=== PATIENT | male | born 1955 | race Caucasian/White ===

== ENCOUNTER 2017-08-29 11:59 | Day surgery (SDC) | payer OTHER, MEDICARE, MEDICAID, SELFPAY ==
--- NOTE | 2017-08-16 12:33 | EKG12_ITS ---
Test Reason : PRE OP Blood Pressure : / mmHG Vent. Rate : 104 BPM Atrial Rate : 104 BPM P-R Int : 204 ms QRS Dur : 086 ms QT Int : 332 ms P-R-T Axes : 041 -05 064 degrees QTc Int : 436 ms Sinus tachycardia Otherwise normal ECG Confirmed by JACKELINE HATFEILD, GIGI ([id number]), society editor DINA LORENZANA ([id number]) on 08/20/2017 3:07:08 PM Referred By: MARGIE Confirmed By:GIGI VIVEROS MD
[2017-08-16 13:25] LABS: Hematocrit 46.6 % (40-54); Hemoglobin 15.5 g/dl (13.0-16.5); Mean Corp Hgb Conc 33.3 g/gl (32-36); Mean Corpuscular Hgb 30.8 pg (27.0-32.0); Mean Corpuscular Volume 92.6 fL (80-94); Mean Platelet Vol. 11.2 fl (6.2-12.0); Platelet Count 141 K/mm3 (150-450); RBC Distribution Width CV 12.2 % (11.6-14.6); RBC Distribution Width SD 41.5 fl (35.1-43.9); Red Blood Count 5.03 M/mm3 (4.6-6.2); Scan Indicated on CBC? Y/N NO; White Blood Count 6.8 K/mm3 (4.4-11.0)
[2017-08-16 13:54] LABS: AST(SGOT) 14 U/L (15-37); Alanine Aminotransfer ALT/SGPT 10 U/L (12-78); Albumin, Serum 3.6 g/dL (3.4-5.0); Alkaline Phosphatase 67 U/L (45-117); Anion Gap 6 (5-15); BUN 13 mg/dL (7-18); Calcium,Total 8.7 mg/dL (8.5-10.1); Chloride 107 mmol/L (98-107); Creatinine, Serum 0.68 mg/dL (0.70-1.30); EST Glomerular Filtration Rate 125 mL/min (>60); Est Glom Filt Rate - Afr Amer 151 mL/min (>60); Globulin 3.6 g/dL (2.2-4.2); Glucose 109 mg/dL (70-110); Potassium 4.3 mmol/L (3.5-5.1); Protein, Total 7.2 g/dL (6.4-8.2); Sodium Level 142 mmol/L (136-145)
[2017-08-16 14:36] LABS: Color, Urine Yellow (Yellow); Glucose, Dipstick Normal (Normal); Ketone-Dipstick 5 mg/dl (Negative); Leukocyte Esterase-Dipstick 500 /ul (Negative); Nitrite-Dipstick Negative (Negative); Occult Blood-Urine 25 /ul (Negative); Protein-Dipstick Negative (Negative); Urine Bilirubin Dipstick Negative (Negative); Urine Clarity Sl. Cloudy (Clear); Urine Urobilinogen Normal (Normal)
[2017-08-29 12:55] VITALS: BP 118/75; PULSE 88; RESP 16; TEMP 37.3; O2SAT 98; BMI 24.7
--- NOTE | 2017-08-29 13:15 | VDLE_ITS ---
Reason For Study: LEG PAIN AND SWELLING RIGHT LEFT GSV is dilated and non-compressible from SFJ CFV is compressible, spontaneous, phasic, to ankle competent, and demonstrates normal CFV and proximal FV are dilated and non- augmentation. compressible with intraluminal echoes and diminshed blood flow. Mid/Dist FV, POP V and T/P trunk are partially compressible with intraluminal echoes and diminshed blood flow. PTV is compressible PER V is compressible Thrombus filled varicosities noted Rt medial calf. Procedure Exam performed portable in patient room. A preliminary report was called and/or faxed to AC nurse. Interpretation Summary Acute deep vein thrombosis is noted in the right common femoral vein. Acute deep vein thrombosis is noted in the right femoral vein. Acute deep vein thrombosis is noted in the right popliteal vein. Acute deep vein thrombosis is noted in the right tibio-peroneal trunk. The right posterior tibial vein and peroneal vein are patent and compressible. Acute superficial thrombophlebitis is noted in the right great saphenous vein from the right sapheno-femoral junction to the ankle. Acute superficial thrombophlebitis is noted involving superficial varicosities in the right medial calf. Ordering Physician: Rodrigo White Referring Physician: Adelfo Burns M.D. Performed By: Claudette Gerardo RVT
== END 2017-08-29 14:08 | disposition short-term general hospital (02) ==
LOC: SDC 12:00 → AC 12:00 → MS3 13:57
PROVIDERS: Family Provider Family Medicine; PCP Family Medicine; Visit Provider Urology
DX: Z01.818 Encounter for other preprocedural examination (principal); I82.411 Acute embolism and thrombosis of right femoral vein; I82.431 Acute embolism and thrombosis of right popliteal vein; I82.441 Acute embolism and thrombosis of right tibial vein; I80.01 Phlebitis and thrombophlebitis of superficial vessels of right lower extremity; Z79.899 Other long term (current) drug therapy
CPT/HCPCS: 36415; 80053; 81002; 85027; 86850; 86900; 87086; 93971; J7120; J2405

== ENCOUNTER 2017-08-29 14:07 | Inpatient (IN) | payer OTHER, MEDICARE, MEDICAID, SELFPAY ==
[2017-08-29] VITALS (7 sets, daily range): BP systolic 105–162; BP diastolic 67–85; PULSE 75–91; RESP 16–18; TEMP 36.5–37.3; O2SAT 93–96; BMI 24.7
--- NOTE | 2017-08-29 14:20 | ED.RN ---
police obtained number for son. registration obtained for daughter. attempted to call with no answer at this time.
--- NOTE | 2017-08-29 15:07 | RAD_ITS ---
STUDY: X-RAY CHEST REASON FOR EXAM: Male, 61 years old. Cough. TECHNIQUE: Single AP portable view of the chest. COMPARISON: None. FINDINGS: EKG electrodes are seen. The lungs are clear and expanded. There is no demonstrated pleural abnormality. There is mild cardiac enlargement. Normal mediastinum and ethan. Normal visualized pulmonary arteries. There is atherosclerotic tortuosity of the aortic arch and descending thoracic aorta. Normal visualized thoracic spine. Normal visualized ribs, clavicles, and shoulders. There is no demonstrated abnormality of the visualized soft tissue structures of the upper abdomen. RAD/Chest 1 View (Portable) IMPRESSION: Mild cardiomegaly. The lungs are clear. Electronically Signed: Temo Raya MD at 15:46 EST Tel [phone], Service support ,
--- NOTE | 2017-08-29 15:07 | EKG12_ITS ---
Test Reason : Blood Pressure : / mmHG Vent. Rate : 093 BPM Atrial Rate : 093 BPM P-R Int : 160 ms QRS Dur : 088 ms QT Int : 364 ms P-R-T Axes : 050 022 066 degrees QTc Int : 452 ms Normal sinus rhythm Normal ECG Confirmed by GIGI VIVEROS MD ([id number]), script editor DINA LORENZANA ([id number]) on 09/04/2017 3:31:05 PM Referred By: KP Confirmed By:GIGI VIVEROS MD
[2017-08-29] MEDS: Carbidopa/Levodopa 25/250 Tablet PO (15:36)
[2017-08-29] MEDS: diazePAM 2 MG Tablet PO (15:36)
--- NOTE | 2017-08-29 15:38 | ED.DCSUM_ITS ---
- ER Visit Summary Date of Service: 08/29/17 Chief Complaint: DVT History of Present Illness: The patient is a 61 M DVT in his right leg diagnosed today. Patient has a history of an enlarged prostate and frequent UTIs. He came to the hospital today to have a prostate procedure by Dr. White. It was noted that he had right leg pain last night and then swelling today. He was sent for an ultrasound. This showed clots throughout his right leg. Please refer to the separate report. He never had DVTs before. He is not on blood thinners. He denies any chest pain, shortness of breath, or cough. He does have a history of Parkinson's disease and resides in a nursing facility. Physical Examination: Vital signs unremarkable. Afebrile. Alert. Appears comfortable. Heart regular. Lungs clear. Right lower extremity is diffusely swollen and tender to palpation. Pulses are intact. Sensation intact. Test Results: Ultrasound results reviewed. Will get chest x-ray, EKG, laboratory studies. Emergency Department Course and Treatment: He was treated with his Parkinson's medication while awaiting results. I spoke with the hospitalist. If labs are normal, he will be started on Lovenox and admitted for monitoring. Treatment Plan: As above Disposition: Admission Impression: 1. DVT right leg This note was generated with [employer] dictation software. It may contain incorrect words, spelling, and punctuation that were not noted in review of the chart prior to signing ED Disposition - Plan for ED Patient: Chief Complaint: Lower Extremity Injury Referrals: Adelfo Burns MD [Primary Care Provider] -
[2017-08-29] MEDS: Baclofen 10 MG Tablet PO ×3 (15:40→22:25)
[2017-08-29 15:44] LABS: Absolute Lymphocyte Count 1.41 X10^3/ul (0.83-4.51); Absolute Neutrophil Count 5.3 X10^3/uL (2.0-7.7); Basophil# 0.02 X10^3/uL; Basophil% 0.3 % (0-1); Eosinophil# 0.15 X10^3/uL; Hematocrit 44.8 % (40-54); Lymphocyte # 1.41 X10^3/ul (4.0); Lymphocyte % 18.9 % (19-41); Mean Corp Hgb Conc 33.5 g/gl (32-36); Mean Corpuscular Hgb 30.7 pg (27.0-32.0); Mean Corpuscular Volume 91.6 fL (80-94); Mean Platelet Vol. 10.6 fl (6.2-12.0); Monocyte# 0.58 X10^3/uL; Monocyte% 7.8 % (0-10); Neutrophil # 5.28 X10^3/uL (2.7-7.7); Neutrophil % 70.7 % (47-70); Platelet Count 184 K/mm3 (150-450); RBC Distribution Width CV 12.3 % (11.6-14.6); RBC Distribution Width SD 41.2 fl (35.1-43.9); Red Blood Count 4.89 M/mm3 (4.6-6.2); White Blood Count 7.5 K/mm3 (4.4-11.0)
[2017-08-29 15:45] LABS: POSITIVE COUNT NO; POSITIVE DIFFERENTIAL NO; POSITIVE MORPHOLOGY NO
[2017-08-29 15:55] LABS: Anion Gap 7 (5-15); BUN 17 mg/dL (7-18); BUN/Creat Ratio 26.9 RATIO (10-20); Calcium,Total 8.7 mg/dL (8.5-10.1); Chloride 107 mmol/L (98-107); Creatinine, Serum 0.63 mg/dL (0.70-1.30); EST Glomerular Filtration Rate 136 mL/min (>60); Est Glom Filt Rate - Afr Amer 165 mL/min (>60); Estimated Creatinine Clearance 93.89 ml/min; Glucose 82 mg/dL (70-110); Potassium 3.8 mmol/L (3.5-5.1); Sodium Level 142 mmol/L (136-145)
[2017-08-29 16:00] LABS: International Normalized Ratio 1.2; Partial Thromboplast Time 32.8 Seconds (24.1-36.2); Prothrombin Time (Protime)PT. 14.9 SECONDS (11.7-14.9)
--- NOTE | 2017-08-29 16:35 | PCM.HP.STD ---
<Scott Zaman - Last Filed: 08/29/17 16:35> Problem List (1) DVT (deep venous thrombosis) Status: Acute (2) Urinary retention due to benign prostatic hyperplasia Status: Chronic (3) Parkinson disease Status: Chronic (4) Dysphagia Status: Chronic History of Present Illness Date of Admission: 08/29/17 Chief Complaint: swelling of right leg The patient is a 61 year old M who presented to the emergency room from outpatient surgery where he was found to have acute right lower extremity DVT. Patient and his first noticed swelling of his leg starting yesterday. He notices very edematous, warm, and erythematous. Today it was much worse. The patient resides in nursing home home as he has had Parkinson's for about 13 years has very debilitated. He has very minimal movement. He is essentially wheelchair-bound. He reported to the hospital to have a cystoscopy as he has had urinary retention secondary to benign prostatic hypertrophy with frequent UTIs - he was on an abx leading up to this but they do not remember which. They found his right leg severely swollen and decided to do an ultrasound which did reveal underlying DVTs. He denies any history of blood clots. He denies any inciting trauma, there been no falls recently and no accidental injuries to that area. He denies any respiratory symptoms, he has no dyspnea, no cough, no chest pain, no pain with deep inspiration. The patient is a very difficult time speaking and most of the interview was obtained via his who is present. [] Past Medical History Past Medical History (Chronic Problems): Chronic Problems Chronic constipation (Chronic) Parkinson disease (Chronic) Urinary retention due to benign prostatic hyperplasia (Chronic) Dysphagia (Chronic) Allergies Penicillins Allergy (Verified 12/29/15 15:47) Hives quetiapine fumarate [From Seroquel] Adverse Reaction (Verified 02/16/15 15:17) Other PERSONALITY CHANGES Home Medications: Ambulatory Orders Medication Instructions Recorded Baclofen 10 mg PO Q4H 04/25/17 Carbidopa/Levodopa 50/200 [Sinemet 1 tablet PO Q4H PRN 04/25/17 CR] Diazepam 2 mg PO 5X/DAY 04/25/17 Gavilax 17 gm PO DAILY 04/25/17 Ropinirole HCl [Requip] 1 mg PO 5X/DAY 04/25/17 Tamsulosin HCl [Flomax] 0.8 mg PO DAILY 04/25/17 Oxycodone HCl/Acetaminophen 1 - 2 tablet PO Q4H PRN PRN #30 04/26/17 [Percocet 5/325] tablet Carbidopa/Levodopa 25/100 [Sinemet] 1 tablet PO 0000 08/14/17 Cranberry Fruit Extract [Cranberry 500 mg PO DAILY 08/14/17 Concentrate] Cephalexin 500 mg PO DAILY 08/29/17 Cephalexin [Keflex] 500 mg PO Q6 08/29/17 Finasteride [Proscar] 5 mg PO DAILY 08/29/17 Surgical History: herniorrhaphy - right, tonsillectomy Lives: [facility] Smoking Status: Never smoker Tobacco Use: Non-smoker Alcohol: None Drugs: None - *Family History Maternal History Items: Cancer - breast Review of Systems Constitutional: Reports: Weakness. Denies: Chills, Fever, Weight Change Eyes: Denies: Double vision, Vision Change HEENT: Reports: Difficulty Swallowing. Denies: Difficulty Hearing, Dysphasia, Head Aches, Sinus Congestion, Sinus Drainage Cardiovascular: Denies: Chest Pain, Palpitations Respiratory: Denies: Cough, Hemoptysis, Pleuritic Pain, Shortness of Breath, Shortness of breath at rest, Shortness of breath upon exertion, Sputum production, Wheezing Gastrointestinal: Denies: Abdominal Pain, Diarrhea, Nausea, Vomiting Genitourinary: Reports: Retention. Denies: Dysuria Musculoskeletal: Denies: Joint Pain, Joint Tenderness Skin: Denies: Rash, Wounds Neurological: Denies: Numbness, Tingling, Focal weakness Psychiatric: Denies: Anxiety, Depression, Homicidal Ideations, Suicidal Ideations Hematologic/ Lymphatic: Denies: Easy Bruising, Easy Bleeding VTE Information - Inpt Only VTE Present on Admission: Yes VTE Mechan Device Prophylaxis: None VTE Pharm Prophylaxis ordered?: Yes VTE Suspected: Suspected DVT Patient Problems: Active and Suspected Problems DVT (deep venous thrombosis) (Acute) - Physical Exam General: Alert, Oriented x3, Cooperative HEENT: Atraumatic, PERRLA, EOMI, Normocephalic Neck: Supple, No JVD, Negative Carotid Bruits Lungs: Clear to auscultation, Normal air movement Cardiovascular: Regular rate, No murmurs Abdomen: Bowel Sounds Present, Soft, Non Tender Extremities: Capillary Refill Less than 3 Seconds, Edema, - - Right lower extremity is swollen in the proximal and distal aspects. There is an area of erythema. It is very warm to the touch. Skin: No rashes, No breakdown Musculoskeletal: No Tenderness to Palpation of Joints or Extremities Neurological: Cranial nerves II-XII grossly intact Psych/Mental Status: Normal Affect, Appropriate Vital Signs Temp Pulse Resp BP Pulse Ox 97.8 F 91 18 162/85 H 93 08/29/17 14:08 08/29/17 16:14 08/29/17 16:14 08/29/17 16:14 08/29/17 16:14 Assessment/Plan Active and Suspected Problems DVT (deep venous thrombosis) (Acute) 1. Acute right lower extremity DVT-patient will be placed on therapeutic Lovenox with plan to transition to oral anticoagulation in the morning. Currently no respiratory symptoms. The patient likely developed DVT as he is chronically immobile secondary to Parkinson's disease. 2. Debility and Parkinson's disease-PT OT. Patient will need to be transition back to nursing home where he came from. 3. Chronic urinary retention secondary to BPH-patient will need to follow-up with Dr. Barlow as an outpatient to have his cystoscopy that was canceled today. 4. Dysphagia -chronic - patient requires thickened liquid diets and smashed foods. We will do speech therapy consult and dietary consult. 5. HTN - bp elevated in ER. Trend and treat if indicated DC planning: Return to SNF when appropriate. This patient was seen by Scott Zaman PA-C under the supervision of Doctor Ti. <Reese Luke E - Last Filed: 08/29/17 17:07> Problem List (1) Parkinson disease Status: Chronic (2) DVT (deep venous thrombosis) Status: Acute (3) Urinary retention due to benign prostatic hyperplasia Status: Chronic (4) Dysphagia Status: Chronic History of Present Illness The patient is a 61 year old M [] Past Medical History Allergies Penicillins Allergy (Verified 12/29/15 15:47) Hives quetiapine fumarate [From Seroquel] Adverse Reaction (Verified 02/16/15 15:17) Other PERSONALITY CHANGES - Physical Exam Vital Signs Temp Pulse Resp BP Pulse Ox 97.8 F 91 18 162/85 H 93 08/29/17 14:08 08/29/17 16:14 08/29/17 16:14 08/29/17 16:14 08/29/17 16:14 Assessment/Plan Hospitalist note: I am seeing this patient in conjunction with Scott Zaman. I independently seen and examined the patient. History and physical, laboratory data and imaging studies reviewed. I agree with above treatment and discharge plan. Patient came to the hospital today as outpatient for elective cystoscopy, found to have right leg swelling and he complains of pain. Venous Doppler of the right lower extremity done and reviewed extensive acute DVTs of multiple veins of the right lower extremity. At this time, patient complained of right calf pain. No chest pain or shortness of breath. Denied abdominal pain, nausea or vomiting. Patient is at the nursing home facility, nonambulatory most of his time because of Parkinson's disease and debility. This time, vital signs are stable. - Physical Exam General: Alert, Cooperative, No apparent distress. HEENT: Atraumatic, PERRLA, EOMI. Neck: Supple, No JVD, Negative Carotid Bruits, Trachea Midline, Thyroid Normal. Lungs: Diminished breath sounds bilateral, No rhonchi, No wheeze, No rales. Cardiovascular: Regular rate, Regular Rhythm, Normal S1, Normal S2, PMI Normal. Abdomen: Bowel Sounds Present, Soft, Non Tender, Non-Distended, No Hepato-splenomegaly. Extremities: No clubbing, No cyanosis, No edema Skin: No rashes, No breakdown Neurological: Cranial nerves are intact, global weakness. Vital Signs are stable. Assessment and plan: #1 acute extensive DVTs of the right lower extremity: This is considered unprovoked DVT because of sedentary life. No recent history of surgery, cancer or other congenital clotting disorders. Respiratory status is stable, other vital signs are stable. Plan to start him on Lovenox, eventually he would be on either Eliquis or Xarelto. #2 other chronic medical problems: Parkinson's disease, benign prostatic hypertrophy, debility and functional decline: Continue current treatment as above. This note was generated with [employer] dictation software. It may contain incorrect words, spelling, and punctuation that were not noted in checking the note before signing. Code Visit Inpatient E&M: 31624 Init Hosp L3
[2017-08-29] MEDS: Enoxaparin 60 MG/0.6 ML Syringe SC (17:03)
[2017-08-29] MEDS: Pramipexole Di-HCl 0.5 MG Tablet PO ×3 (17:03→22:25)
[2017-08-29] MEDS: 0.9% Normal Saline 1,000 ML 75 ML IV (18:36)
[2017-08-29] MEDS: diazePAM 5 MG Tablet 2.5 MG PO ×2 (18:36→22:26)
[2017-08-29] MEDS: Tamsulosin HCl 0.4 MG Capsule 0.8 MG PO (18:40)
[2017-08-29] MEDS: CARBIDOPA/LEVODOPA CR 50/200 Tablet PO ×2 (18:40→22:25)
[2017-08-29] MEDS: Senna/Docusate Sodium 1 Tablet 2 TABLET PO (22:25)
[2017-08-30] VITALS (8 sets, daily range): BP systolic 122–159; BP diastolic 66–90; PULSE 67–88; RESP 16–18; TEMP 36.7–37.1; O2SAT 93–98
[2017-08-30] MEDS: CARBIDOPA/LEVODOPA CR 50/200 Tablet PO ×6 (00:57→15:14)
[2017-08-30] MEDS: Carbidopa/Levodopa 25/100 Tablet PO (00:57)
[2017-08-30] MEDS: Baclofen 10 MG Tablet PO ×4 (00:57→14:07)
[2017-08-30] MEDS: diazePAM 5 MG Tablet 2.5 MG PO ×3 (05:47→14:12)
[2017-08-30] MEDS: Enoxaparin 60 MG/0.6 ML Syringe SC (05:48)
[2017-08-30] MEDS: Pramipexole Di-HCl 0.5 MG Tablet PO ×3 (05:48→14:07)
[2017-08-30] MEDS: Pantoprazole Sodium 20 MG Tablet PO (08:43)
[2017-08-30] MEDS: Senna/Docusate Sodium 1 Tablet 2 TABLET PO (10:03)
--- NOTE | 2017-08-30 12:48 | PCM.TXEXTCAR ---
- Diet 08/29/17 16:14 Diet: Regular Diet Food consistency:: Mechanical Soft/Ground Liquid Consistency:: [place] Thick Diet Comments: nectar thick liquids - Therapies Weight Bearing: return to previous activity level - Problem/Diagnosis (1) Parkinson disease Status: Chronic Current Visit: No (2) DVT (deep venous thrombosis) Status: Acute Comment: right leg Current Visit: Yes (3) Urinary retention due to benign prostatic hyperplasia Status: Chronic Current Visit: Yes (4) Dysphagia Status: Chronic Current Visit: Yes - Allergies/Procedures Done in Hospital Allergies/Adverse Reactions: Allergies Penicillins Allergy (Verified 12/29/15 15:47) Hives quetiapine fumarate [From Seroquel] Adverse Reaction (Verified 02/16/15 15:17) Other PERSONALITY CHANGES Procedures: None - Type of Care/Length of Stay Estimated LOS: More Than 30 Days Type of Care Needed: Intermediate Rehab Potential: Fair Prognosis: Fair - Additional Orders/Day of Discharge Additional Orders: straight cath twice daily. appointment with Dr. White in 3-4 weeks H&P will serve as current which was dated: 08/29/17 Day of Discharge: 08/30/17 - Follow Up Care Primary Care Physician: Adelfo Burns MD [Primary Care Provider] -
--- NOTE | 2017-08-30 12:59 | TREXTCAR_ITS ---
- Diet 08/29/17 16:14 Diet: Regular Diet Food consistency:: Mechanical Soft/Ground Liquid Consistency:: [place] Thick Diet Comments: nectar thick liquids - Therapies Weight Bearing: return to previous activity level - Problem/Diagnosis (1) Parkinson disease Status: Chronic Current Visit: No (2) DVT (deep venous thrombosis) Status: Acute Comment: right leg Current Visit: Yes (3) Urinary retention due to benign prostatic hyperplasia Status: Chronic Current Visit: Yes (4) Dysphagia Status: Chronic Current Visit: Yes - Allergies/Procedures Done in Hospital Allergies/Adverse Reactions: Allergies Penicillins Allergy (Verified 12/29/15 15:47) Hives quetiapine fumarate [From Seroquel] Adverse Reaction (Verified 02/16/15 15:17) Other PERSONALITY CHANGES Procedures: None - Type of Care/Length of Stay Estimated LOS: More Than 30 Days Type of Care Needed: Intermediate Rehab Potential: Fair Prognosis: Fair - Additional Orders/Day of Discharge Additional Orders: straight cath twice daily. appointment with Dr. White in 3- 4 weeks H&P will serve as current which was dated: 08/29/17 Day of Discharge: 08/30/17 - Follow Up Care Primary Care Physician: Adelfo Burns MD [Primary Care Provider] -
--- NOTE | 2017-08-30 14:06 | CASEMGMT ---
Social Work Transfer summary, medlist and scripts faxed to SNF. Copies on chart and originals in SNF packet. Transportation setup through [facility] via [facility] at 16:30. Notified SNF and RN. Plan: [facility] LUNA ValenciaW
--- NOTE | 2017-08-30 14:25 | CHAPLAIN ---
Type of Pastoral Visit _x__ Initial Visit ___ Follow-up Visit ___ On-call Visit ___ General Patient Visit ___ Spiritual Assessment ___ Family Conference ___ Bereavement ___ Rapid Response ___ Code Blue ___ Other (describe below) Pastoral Care Referral From _x__ Patient ___ Family ___ Nurse ___ Physician ___ Second Grade Teacher ___ Supervisor Dyer ___ Other (describe below) Sacrament/Intervention _x__ Active listening ___ Anointing ___ Samaritan ___ Bereavement ___ Communion _x__ Va exploration ___ ___ Life review _x__ Prayer ___ Reconciliation ___ Sacrament of Sick _x__ Supportive presence ___ Wedding ___ Other (describe below) Pastoral Comments
--- NOTE | 2017-08-31 10:21 | PCM.DC.SUM ---
Discharge Date and Diagnosis Date of Admission: 08/29/17 Date of Discharge: 08/30/17 - Primary Discharge Diagnosis #1 deep venous thrombosis right leg #2 Parkinson's disease #3 benign prostatic hypertrophy - Secondary Discharge Diagnosis Chronic Problems Chronic constipation (Chronic) Parkinson disease (Chronic) Urinary retention due to benign prostatic hyperplasia (Chronic) Dysphagia (Chronic) Hospital Course and Treatment Operations: None Procedures: None Summary of Care Provided: The patient is a 61 year old M was admitted to [facility] after going to the emergency room due to the finding of a DVT in his right leg. Patient was scheduled for outpatient prostate surgery, it was noted that he had right leg pain and swelling, he was sent for a venous ultrasound which showed clots throughout the right leg. Patient was sent to the emergency room for evaluation, he was started on Lovenox, and admitted to the hospitalist service for further treatment. The following day, patient was seen and examined, he had no shortness of breath and was on no oxygen. It was felt that the patient could return to an extended care facility at which he was a resident on Xarelto. On 08/30/17, patient was seen and examined felt to be in stable condition for discharged back to [facility] facility Home Medications: Medications to take at Discharge Baclofen 10 mg PO Q4H 04/25/17 Carbidopa/Levodopa 50/200 [Sinemet CR 50/200] 1 tablet PO Q4H PRN 04/25/17 Gavilax 17 gm PO DAILY 04/25/17 Ropinirole HCl [Requip] 1 mg PO 5X/DAY 04/25/17 Tamsulosin HCl [Flomax] 0.8 mg PO DAILY 04/25/17 Carbidopa/Levodopa 25/100 [Sinemet 25/100] 1 tablet PO 0000 08/14/17 Cranberry Fruit Extract [Cranberry Concentrate] 500 mg PO DAILY 08/14/17 Cephalexin 500 mg PO DAILY 08/29/17 Finasteride [Proscar] 5 mg PO DAILY 08/29/17 Diazepam 2 mg PO 4X/DAY #20 tab 08/30/17 Oxycodone [Oxyir] 5 mg PO Q4H PRN PRN #30 tab 08/30/17 Rivaroxaban [Xarelto] 15 mg PO BID #1 tablet 08/30/17 Following Prescrptions Were Given to Patient: Oxycodone [Oxyir] 5 mg PO Q4H PRN PRN #30 tab PRN Reason: Severe Pain (6-06/19) Rivaroxaban [Xarelto] 15 mg PO BID #1 tablet Diazepam 2 mg PO 4X/DAY #20 tab Primary Care Physician: Adelfo Burns MD [Primary Care Provider] - Disposition: [facility] facility Minutes spent on discharge:: 32 Patient Condition:: Stable Meaningful Use Info Meaningful Use Diagnoses (Choose all that apply): VTE - VTE Anticoag overlap given w/in hospital stay or rx'd at dc?: Yes Pt receive overlap for 5 days?: No Reason overlap not ordered, prescribed, or given for 5 days: Treatment Not Indicated - on Xarelto Code Visit Inpatient E&M: 14413 Disch Hosp
--- NOTE | 2017-08-31 10:27 | DS.PCM_ITS ---
Discharge Date and Diagnosis Date of Admission: 08/29/17 Date of Discharge: 08/30/17 - Primary Discharge Diagnosis #1 deep venous thrombosis right leg #2 Parkinson's disease #3 benign prostatic hypertrophy - Secondary Discharge Diagnosis Chronic Problems Chronic constipation (Chronic) Parkinson disease (Chronic) Urinary retention due to benign prostatic hyperplasia (Chronic) Dysphagia (Chronic) Hospital Course and Treatment Operations: None Procedures: None Summary of Care Provided: The patient is a 61 year old M was admitted to [facility] after going to the emergency room due to the finding of a DVT in his right leg. Patient was scheduled for outpatient prostate surgery, it was noted that he had right leg pain and swelling, he was sent for a venous ultrasound which showed clots throughout the right leg. Patient was sent to the emergency room for evaluation, he was started on Lovenox, and admitted to the hospitalist service for further treatment. The following day, patient was seen and examined, he had no shortness of breath and was on no oxygen. It was felt that the patient could return to an extended care facility at which he was a resident on Xarelto. On 08/30/17, patient was seen and examined felt to be in stable condition for [facility] Home Medications: Medications to take at Discharge Baclofen 10 mg PO Q4H 04/25/17 Carbidopa/Levodopa 50/200 [Sinemet CR 50/200] 1 tablet PO Q4H PRN 04/25/17 Gavilax 17 gm PO DAILY 04/25/17 Ropinirole HCl [Requip] 1 mg PO 5X/DAY 04/25/17 Tamsulosin HCl [Flomax] 0.8 mg PO DAILY 04/25/17 Carbidopa/Levodopa 25/100 [Sinemet 25/100] 1 tablet PO 0000 08/14/17 Cranberry Fruit Extract [Cranberry Concentrate] 500 mg PO DAILY 08/14/17 Cephalexin 500 mg PO DAILY 08/29/17 Finasteride [Proscar] 5 mg PO DAILY 08/29/17 Diazepam 2 mg PO 4X/DAY #20 tab 08/30/17 Oxycodone [Oxyir] 5 mg PO Q4H PRN PRN #30 tab 08/30/17 Rivaroxaban [Xarelto] 15 mg PO BID #1 tablet 08/30/17 Following Prescrptions Were Given to Patient: Oxycodone [Oxyir] 5 mg PO Q4H PRN PRN #30 tab PRN Reason: Severe Pain (6-06/19) Rivaroxaban [Xarelto] 15 mg PO BID #1 tablet Diazepam 2 mg PO 4X/DAY #20 tab Primary Care Physician: Adelfo Burns MD [Primary Care Provider] - Disposition: Nursing Home facility Minutes spent on discharge:: 32 Patient Condition:: Stable Meaningful Use Info Meaningful Use Diagnoses (Choose all that apply): VTE - VTE Anticoag overlap given w/in hospital stay or rx'd at dc?: Yes Pt receive overlap for 5 days?: No Reason overlap not ordered, prescribed, or given for 5 days: Treatment Not Indicated - on Xarelto Code Visit Inpatient E&M: 20896 Disch Hosp
== END 2017-08-30 16:35 | disposition intermediate care facility (04) | DRG 301 ==
LOC: ED 16:05 → MS2 17:05
PROVIDERS: Admitting Provider Hospitalist; Emergency Provider Emergency Medicine; Family Provider Family Medicine; PCP Family Medicine; Visit Provider Internal Medicine
DX: I82.411 Acute embolism and thrombosis of right femoral vein (principal); G20 Parkinson's disease; I82.431 Acute embolism and thrombosis of right popliteal vein; I82.441 Acute embolism and thrombosis of right tibial vein; R13.10 Dysphagia, unspecified; N40.1 Benign prostatic hyperplasia with lower urinary tract symptoms; R33.8 Other retention of urine; K59.09 Other constipation
CPT/HCPCS: 71010; 80048; 85025; 85610; 85730; 92610; 93005; 93971; 97802; 99285; J7030; J7120; A4216; G8996; G8997

== ENCOUNTER → 2017-09-17 05:00 | Outpatient (REF) | payer MEDICARE, MEDICAID, SELFPAY ==
[2017-09-17 09:08] LABS: Hematocrit 42.6 % (40-54); Hemoglobin 13.8 g/dl (13.0-16.5); Mean Corp Hgb Conc 32.4 g/gl (32-36); Mean Corpuscular Volume 92.6 fL (80-94); Mean Platelet Vol. 12.1 fl (6.2-12.0); Platelet Count 135 K/mm3 (150-450); RBC Distribution Width CV 12.4 % (11.6-14.6); RBC Distribution Width SD 41.9 fl (35.1-43.9); White Blood Count 5.9 K/mm3 (4.4-11.0)
[2017-09-17 09:10] LABS: Scan Indicated on CBC? Y/N NO
[2017-09-17 09:25] LABS: ALB/GLOB Ratio 0.9 RATIO (0.9-2.4); AST(SGOT) 10 U/L (15-37); Alanine Aminotransfer ALT/SGPT 8 U/L (12-78); Alkaline Phosphatase 56 U/L (45-117); Anion Gap 6 (5-15); BUN 15 mg/dL (7-18); BUN/Creat Ratio 22.7 RATIO (10-20); Calcium,Total 8.6 mg/dL (8.5-10.1); Chloride 109 mmol/L (98-107); Creatinine, Serum 0.66 mg/dL (0.70-1.30); EST Glomerular Filtration Rate 129 mL/min (>60); Est Glom Filt Rate - Afr Amer 157 mL/min (>60); Globulin 3.2 g/dL (2.2-4.2); Glucose 81 mg/dL (70-110); Potassium 3.6 mmol/L (3.5-5.1); Protein, Total 6.2 g/dL (6.4-8.2); Sodium Level 143 mmol/L (136-145)
== END ==
LOC: OLS.WCC 05:00
PROVIDERS: Visit Provider Family Medicine
DX: I10 Essential (primary) hypertension (principal); Z79.899 Other long term (current) drug therapy
CPT/HCPCS: 36415; 80053; 85027

== ENCOUNTER → 2017-10-17 14:00 | Outpatient (REF) | payer MEDICARE, SELFPAY ==
[2017-10-18 08:53] LABS: Color, Urine Yellow (Yellow); Glucose, Dipstick Normal (Normal); Ketone-Dipstick Negative (Negative); Leukocyte Esterase-Dipstick 500 /ul (Negative); Nitrite-Dipstick Positive (Negative); Occult Blood-Urine 50 /ul (Negative); Protein-Dipstick 100 mg/dl (Negative); Specific Gravity, Urine 1.015 (1.002-1.030); Urine Bilirubin Dipstick Negative (Negative); Urine Clarity Sl. Cloudy (Clear); Urine Urobilinogen Normal (Normal)
== END ==
LOC: OLS.WCC 14:00
PROVIDERS: Visit Provider Family Medicine
DX: N39.0 Urinary tract infection, site not specified (principal)
CPT/HCPCS: 81002; 87077; 87086; 87088; 87186

== ENCOUNTER → 2017-11-10 00:15 | Outpatient (REF) | payer MEDICARE, SELFPAY | LOC: OLS.WCC 00:15 | PROVIDERS: Visit Provider Family Medicine | DX: N39.0 Urinary tract infection, site not specified (principal) | CPT/HCPCS: 87077; 87086; 87088; 87186 ==

== ENCOUNTER → 2018-01-03 20:00 | Outpatient (REF) | payer MEDICARE, SELFPAY ==
[2018-01-04 08:38] LABS: Color, Urine Yellow (Yellow); Glucose, Dipstick 50 mg/dl (Normal); Ketone-Dipstick 5 mg/dl (Negative); Leukocyte Esterase-Dipstick 500 /ul (Negative); Nitrite-Dipstick Positive (Negative); Occult Blood-Urine 250 /ul (Negative); Protein-Dipstick 100 mg/dl (Negative); Urine Bilirubin Dipstick Negative (Negative); Urine Clarity Cloudy (Clear); Urine Urobilinogen Normal (Normal)
== END ==
LOC: OLS.WCC 20:00
PROVIDERS: Visit Provider Family Medicine
DX: N39.0 Urinary tract infection, site not specified (principal)
CPT/HCPCS: 81002; 87077; 87086; 87088; 87186

== ENCOUNTER → 2018-03-26 05:00 | Outpatient (REF) | payer MEDICARE, SELFPAY ==
[2018-03-26 07:54] LABS: Hematocrit 41.7 % (40-54); Hemoglobin 13.8 g/dl (13.0-16.5); Mean Corp Hgb Conc 33.1 g/gl (32-36); Mean Corpuscular Hgb 30.2 pg (27.0-32.0); Mean Corpuscular Volume 91.2 fL (80-94); Mean Platelet Vol. 11.6 fl (6.2-12.0); Platelet Count 150 K/mm3 (150-450); RBC Distribution Width CV 12.5 % (11.6-14.6); RBC Distribution Width SD 41.9 fl (35.1-43.9); Red Blood Count 4.57 M/mm3 (4.6-6.2); White Blood Count 6.9 K/mm3 (4.4-11.0)
[2018-03-26 07:57] LABS: Scan Indicated on CBC? Y/N NO
[2018-03-26 08:10] LABS: AST(SGOT) 18 U/L (15-37); Alanine Aminotransfer ALT/SGPT 9 U/L (16-61); Albumin, Serum 3.2 g/dL (3.2-5.0); Alkaline Phosphatase 47 U/L (45-117); Anion Gap 6 (5-15); BUN 20 mg/dL (7-18); BUN/Creat Ratio 26.1 RATIO (10-20); Calcium,Total 8.4 mg/dL (8.5-10.1); Chloride 112 mmol/L (98-107); Creatinine, Serum 0.76 mg/dL (0.70-1.30); EST Glomerular Filtration Rate 109 mL/min (>60); Est Glom Filt Rate - Afr Amer 132 mL/min (>60); Globulin 3.3 g/dL (2.2-4.2); Glucose 76 mg/dL (74-106); Potassium 3.8 mmol/L (3.5-5.1); Protein, Total 6.5 g/dL (6.4-8.2); Sodium Level 145 mmol/L (136-145)
== END ==
LOC: OLS.WCC 05:00
PROVIDERS: Visit Provider Family Medicine
DX: G20 Parkinson's disease (principal)
CPT/HCPCS: 36415; 80053; 85027

== ENCOUNTER → 2018-04-01 00:15 | Outpatient (REF) | payer MEDICARE, MEDICAID, SELFPAY ==
[2018-04-01 11:24] LABS: Color, Urine Amber (Yellow); Glucose, Dipstick Normal (Normal); Ketone-Dipstick Negative (Negative); Leukocyte Esterase-Dipstick 500 /ul (Negative); Nitrite-Dipstick Positive (Negative); Occult Blood-Urine 250 /ul (Negative); Protein-Dipstick 500 mg/dl (Negative); Specific Gravity, Urine 1.015 (1.002-1.030); Urine Bilirubin Dipstick Negative (Negative); Urine Clarity Cloudy (Clear); Urine Urobilinogen Normal (Normal)
== END ==
LOC: OLS.WCC 00:15
PROVIDERS: Visit Provider Family Medicine
DX: N39.0 Urinary tract infection, site not specified (principal)
CPT/HCPCS: 81002; 87077; 87086; 87088; 87186

== ENCOUNTER → 2018-04-10 04:00 | Outpatient (REF) | payer OTHER, MEDICAID, SELFPAY | LOC: OLS.WCC 04:00 | PROVIDERS: Visit Provider Family Medicine | DX: N39.0 Urinary tract infection, site not specified (principal) | CPT/HCPCS: 87086 ==

== ENCOUNTER → 2018-07-08 20:45 | Outpatient (REF) | payer MEDICARE, MEDICAID, SELFPAY | LOC: OLS.WCC 20:45 | PROVIDERS: Visit Provider Family Medicine | DX: N39.0 Urinary tract infection, site not specified (principal) | CPT/HCPCS: 87077; 87086; 87186 ==

== ENCOUNTER → 2018-08-24 04:15 | Outpatient (REF) | payer MEDICARE, SELFPAY ==
[2018-08-24 12:45] LABS: Color, Urine Yellow (Yellow); Glucose, Dipstick Normal (Normal); Ketone-Dipstick 5 mg/dl (Negative); Leukocyte Esterase-Dipstick 500 /ul (Negative); Nitrite-Dipstick Positive (Negative); Occult Blood-Urine 150 /ul (Negative); Protein-Dipstick 100 mg/dl (Negative); Specific Gravity, Urine 1.015 (1.002-1.030); Urine Bilirubin Dipstick Negative (Negative); Urine Clarity Cloudy (Clear); Urine Urobilinogen Normal (Normal)
--- OUTSIDE RECORDS SUMMARY | 2018-11-27 10:11 | XMS RPT_ITS ---
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 sinus. CT/Brain/Head without Contrast IMPRESSION: Mild chronic sinusitis. No intracranial findings. Electronically Signed: Latrice Cespedes MD at 18:29 EST Tel , Service support , CC: Scar Irwin MD; Shena Lorenzana MD Private Investigator Surveillance: Signed URINALYSIS, ROUTINE Collected: 08/24/2018 Status: F Source: [place] (DIPSTICK) 4:15 AM [facility] REPOSITORY Order Comment: How was Urine Obtained? CLEAN CATCH TYPE CODE TESTS RESULT OUT OF RANGE REFERENCE UNITS LAB L400.3000 Yellow COLOR Normal Yellow LAB L400.3050 Clear Normal CLARITY Cloudy LAB L400.3200 Normal mg/dl Normal GLUCOSE, UR Normal LAB L400.3300 Negative mg/dL Normal BILIRUBIN URINE Negative LAB L400.3400 Negative mg/dl High 5 KETONE UR LAB L400.3465 1.002-1.030 Normal SP.GR. DIPSTX 1.015 LAB L400.3550 5.0 - 8.0 pH UR Normal 8.0 LAB L400.3600 Negative mg/dl High PROT DIPSTX 100 LAB L400.3700 Normal mg/dl Normal UROBILI Normal LAB L400.3750 Negative High NITRITE UR Positive LAB L400.3780 Negative /ul High OCCULT BLOOD-UR 150 LAB L400.3800 Negative /ul High LEUK ESTERASE 500 Performed By: #### L400.2010 #### [place] [facility] [address] [place], [address] Observed: 08/24/2018 Status: F Source: [place] CULTURE, URINE 4:15 AM [facility] REPOSITORY NURSE AZIZA THOUGHT THIS WAS CLEAN CATCH Urine Culture ORGANISM 1: Proteus mirabilis [place] Count >100,000 Proteus mirabilis: REACTION Amoxacillin/Clavulanic Acid $ 8 S Ampicillin $ >=32 R Ampicillin/Sulbactam $ 16 I Cefazolin $ <=4 S Cefepime $ <=1 S Ceftriaxone $ <=1 S Ciprofloxacin $ >=4 R Ertapenim $$$ <=0.5 S Gentamicin $ <=1 S Levofloxacin $ >=8 R Nitrofurantoin $ 128 R Piperacillin/Tazobactam $$ <=4 S Tobramycin $ <=1 S Trimethoprim/Sulfametho $ >=320 R (NF) indicates non-formulary drug at [facility]. Approval by Infectious Disease Specialist required before non-formulary drugs may be ordered and/or dispensed. Performed By: #### M100.0650 #### [facility] [address] [place], [address] [facility] Observed: 08/23/2018 Status: COMPLETED Source: [place] 12:00 AM [facility] REPOSITORY Telephone (AKPRAD) SHENA TODD ([id number]) 1955 Date Time Provider Department 08/23/18 DAWSON MYRICK JR AKRAMOS During your visit today, we recorded the following information about you: Dawson Myrick Jr, MD 08/23/2018 1:04 PM Signed ucx + abx prescribed Please print and fax to Beatris Lackey [facility] 08/26/2018 9:34 AM Signed Called and notified Eliezer of below states he will place order for Keflex for patient. Beatris Lackey [facility] Allergies As of Date: 08/23/2018 Noted Allergy Reaction PENICILLINS 04/03/2007 4 - Hives SEROQUEL (QUETIAPINE FUMARATE) 06/28/2009 1 - Mental Status Change Comments: psychotic episode Date Reviewed: 08/20/2018 Reviewed by: Dawson Myrick Jr. - Fully Assessed Reason for Visit: Results [95] Order(s):cephALEXin (KEFLEX) 500 mg capsuleTake 1 capsule by mouth three times daily for 14 days.Disp: 42 capsuleRfl: 0 Prescriptions as of 08/23/2018 Sig: BACLOFEN 10 MG TABLET Take 10 mg by mouth three marquis* CARBIDOPA ER 50 MG-LEVODOPA 2* Take one(1) tablet six times * CEPHALEXIN 500 MG CAPSULE Take 1 capsule by mouth three* * CHOLECALCIFEROL (VITAMIN D3) * not taking DIAZEPAM 5 MG TABLET One half tablet 3 times a day* MAGNESIUM HYDROXIDE 400 MG/5 * Take 15 mL by mouth once samuel* MULTI-VITAMIN ORAL Take by mouth. Not Taking PANTOPRAZOLE 20 MG TABLET,DEL* TAKE 1 TABLET DAILY ON EMPTY * POLYETHYLENE GLYCOL 3350 17 G* Take 17 g by mouth twice samuel* POLYETHYLENE GLYCOL 3350 17 G* Take 17 g by mouth once daily* ROPINIROLE 0.5 MG TABLET Take 0.5 mg by mouth three ti* TAMSULOSIN 0.4 MG CAPSULE TAKE 1 CAPSULE BY MOUTH DAILY* Problem List As Of Date 08/23/2018 Noted Resolved LUMBAGO [M54.5] INVALID FOR* More... Unspecified essential hypertension [I10] INVALID FOR*04/13/2016 More... IMPAIRED FASTING GLUCOSE [R73.01] INVALID FOR* More... Paralysis agitans [G20] INVALID FOR* More... Routine general medical examination at a [facility]*INVALID FOR*04/13/2016 More... Obesity [E66.9] INVALID FOR*04/13/2016 More... Elevated PSA [R97.20] INVALID FOR* More... Joint Pain [M25.50] INVALID FOR* More... Adenomatous colon polyp [D12.6] INVALID FOR* Constipation [K59.00] INVALID FOR* Prescriptions ordered this encounter Disp Refills Start End CEPHALEXIN 500 MG CAPSULE 42 c* 0 08/23/2018 09/06/2018 Class: Print RX Route: ORAL Sig: Take 1 capsule by mouth three times daily for 14 days. Medications Discontinued During This Encounter cephALEXin (KEFLEX) 500 mg capsule 08/23/2018 Class: Historical Med Route: ORAL Sig: Take 500 mg by mouth four times daily. Disc: Reason for discontinue is not on file. Encounter Status:Closed by DAWSON MYRICK MD on 08/23/18 PROGRESS Observed: 08/20/2018 Status: COMPLETED Source: [place] 3:45 PM [facility] REPOSITORY HNO ID: [id number] Author: Dawson Myrick Jr. Service: (none) Author Type: Physician Type: Progress Notes Filed: 08/20/2018 3:47 PM Note Text: ESTABLISHED PATIENT OFFICE VISIT HPI Shena Todd is a 62 year old male who presents bph and recurrent uti. Has been on flomax for bph for years. Was doing ok until last year has developed recurrent uti. cx reviewed. Mdr proteus and morganella. Unsure of length of longest course of abx. No fever. + dysuria. ua discussed today. +. No imaging recently. Ho dvt. On xarelto. Last psa 5.71 in 04/2016. Had catheter per patient at that time. ? ? 02/26/18 - ucx mdr proteus and morganella. Saw dr. douglas. At that time dysuria had resolved. Decided on no treatment. Suggested CIC to keep bladder empty. Discussed CIC with patient. Willing to undergo daily. ? 04/10/18 - [place] indwelling mar catheter. cathing once daily currently. Does feel like has uti. 08/20/18 - still with recurrent uti. Was doing cic daily at [place]. However they have stopped bc of blood in the urine. Offered indwelling cath. Offered SPT. Wrote in note that ok for nurses to cath daily despite blood in urine. Refusing indwelling cath at the moment. LAB: Creatinine Date Value Ref Range Status 09/22/2013 0.63 (L) 0.70 - 1.40 mg/dL Final PSA (ng/mL) Date Value 04/13/2016 5.71 07/05/2009 9.72 No results found for: UGLUC, UBILI, UKET, SPGR, UHB, UPH, UPROT, UROBIL, NITRITES, UWBC, UCOLAP MEDICATIONS: baclofen (LIORESAL) 10 mg tablet Take 10 mg by mouth three times daily. carbidopa-levodopa CR (SINEMET CR) 50-200 mg per tablet Take one(1) tablet six times a day. cephALEXin (KEFLEX) 500 mg capsule Take 500 mg by mouth four times daily. CHOLECALCIFEROL (VITAMIN D3) 5,000 UNIT CAP not taking diazepam (VALIUM) 5 mg tablet One half tablet 3 times a day. Take one(1) tablet daily at bedtime for muscle cramps. magnesium hydroxide (MILK OF MAGNESIA) 400 mg/5 mL suspension Take 15 mL by mouth once daily as needed for Constipation. MULTI-VITAMIN ORAL Take by mouth. Not Taking pantoprazole DR (PROTONIX) 20 mg tablet TAKE 1 TABLET DAILY ON EMPTY STOMACH BEFORE BREAKFAST (30 MINUTES BEFORE MEAL) polyethylene glycol 3350 (MIRALAX) 17 gram/dose powder Take 17 g by mouth twice daily. polyethylene glycol 3350 (MIRALAX) 17 gram/dose powder Take 17 g by mouth once daily. 17 gm as needed in the evening. rOPINIRole (REQUIP) 0.5 mg tablet Take 0.5 mg by mouth three times daily. tamsulosin ER (FLOMAX) 0.4 mg cp24 TAKE 1 CAPSULE BY MOUTH DAILY AT BEDTIME. REVIEW OF SYSTEMS Review of Systems Constitutional: Negative. Respiratory: Negative. Cardiovascular: Negative. Gastrointestinal: Negative. Genitourinary: Negative. Skin: Negative. Neurological: Negative. Psychiatric/Behavioral: Negative. HISTORIES PAST MEDICAL HISTORY Diagnosis Date - Adenomatous colon polyp 11/26/2013 - Anomalous atrioventricular excitation - Kidney stones - Paralysis agitans (HCC) Parkinsons - PMH - PAST MEDICAL HISTORY OF pressure fractures in the back - Pure hypercholesterolemia - Right inguinal hernia 12/30/13 - Unspecified essential hypertension FAMILY HISTORY Problem Relation Age of Onset - Hypertension Mother - Hypertension Sister x2 - Diabetes Mother - Lipids Sister - Breast Cancer Mother diabetes - Headache Sister - other (Thryroid disease [Other]) Sister - Thyroid Mother - Diabetes Sister SOCIAL HISTORY Social History Substance Use Topics - Smoking status: Never Smoker - Smokeless tobacco: Never Used - Alcohol use No PHYSICAL EXAMINATION General appearance: Well appearing, alert, in no acute distress and well-hydrated, well nourished Skin: Skin color, texture, turgor normal, no suspicious rashes or lesions Respiratory:+ effort Cardiovascular: Not examined GI: Normal abdominal exam, Abdomen soft, non-tender. No masses, organomegaly Musculoskeletal: Negative Neuro: Negative Genitourinary: not examined Impression: (N40.1, N13.8) BPH with obstruction/lower urinary tract symptoms (primary encounter diagnosis) (N39.0) Recurrent UTI Plan: Cont cic daily if NH willing Check urine cx Fu to discuss permanent urethral cath vs. Spt if interested in the future Dawson Myrick Jr, MD 08/20/2018 Observed: 08/20/2018 Status: F Source: [place] URINE CULTURE 3:[address] [facility] REPOSITORY Sp. Request/Comment: - Specimen received in preservative Culture Result - >=100,000 CFU/ml Proteus mirabilis --> ABNORMAL ALERT ORGANISM: Proteus mirabilis METHOD: Minimum inhibitory concentration(Vitek) Antibiotic Interp KONSTANTIN Status Ampicillin RESISTANT >=32 F Gentamicin SUSCEPTIBLE <=1 F Trimeth sulfameth RESISTANT >=320 F Cefazolin SUSCEPTIBLE 8 F CLSI breakpoints for therapy of uncomplicated UTI's due to E.coli, K.pneumoniae, and P.mirabilis were applied and may be used to predict the activity of oral agents(cefaclor, cefdinir, cefpodoxime, cefp rozil, cefuroxime, cephalexin, loracarbef). Ciprofloxacin RESISTANT >=4 F Nitrofurantoin RESISTANT 128 F Cefepime SUSCEPTIBLE <=1 F Piperacillin/Tazobac SUSCEPTIBLE <=4 F Ampicillin Sulbact RESISTANT >=32 F Ceftriaxone SUSCEPTIBLE <=1 F Meropenem SUSCEPTIBLE <=0.25 F Ertapenem SUSCEPTIBLE <=0.5 F Performed By: #### URCUL #### [facility] [address] [place], [place] [address] CNOV Observed: 08/20/2018 Status: COMPLETED Source: [place] 2:[address] [facility] REPOSITORY Office Visit (UROLMD) SHENA TODD ([id number]) 1955 M Date Time Provider Department 08/20/18 2:15 PM DAWSON MYRICK JR UROELIANA During your visit today, we recorded the following information about you: Weight Height 68 kg 1.575 m Sulema Franks Ma 08/20/2018 3:01 PM Signed Patient presents with: Established Patient: follow up/BPH and recurrent UTI Dawson Myrick Jr, MD 08/20/2018 3:47 PM Signed ESTABLISHED PATIENT OFFICE VISIT HPI Shena Todd is a 62 year old male who presents bph and recurrent uti. Has been on flomax for bph for years. Was doing ok until last year has developed recurrent uti. cx reviewed. Mdr proteus and morganella. Unsure of length of longest course of abx. No fever. + dysuria. ua discussed today. +. No imaging recently. Ho dvt. On xarelto. Last psa 5.71 in 04/2016. Had catheter per patient at that time. ? ? 02/26/18 - ucx mdr proteus and morganella. Saw dr. douglas. At that time dysuria had resolved. Decided on no treatment. Suggested CIC to keep bladder empty. Discussed CIC with patient. Willing to undergo daily. ? 04/10/18 - [facility] indwelling mar catheter. cathing once daily currently. Does feel like has uti. 08/20/18 - still with recurrent uti. Was doing cic daily [place] [facility]. However they have stopped bc of blood in the urine. Offered indwelling cath. Offered SPT. Wrote in note that ok for nurses to cath daily despite blood in urine. Refusing indwelling cath at the moment. LAB: Creatinine Date Value Ref Range Status 09/22/2013 0.63 (L) 0.70 - 1.40 mg/dL Final PSA (ng/mL) Date Value 04/13/2016 5.71 07/05/2009 9.72 No results found for: UGLUC, UBILI, UKET, SPGR, UHB, UPH, UPROT, UROBIL, NITRITES, UWBC, UCOLAP MEDICATIONS: baclofen (LIORESAL) 10 mg tablet Take 10 mg by mouth three times daily. carbidopa-levodopa CR (SINEMET CR) 50-200 mg per tablet Take one(1) tablet six times a day. cephALEXin (KEFLEX) 500 mg capsule Take 500 mg by mouth four times daily. CHOLECALCIFEROL (VITAMIN D3) 5,000 UNIT CAP not taking diazepam (VALIUM) 5 mg tablet One half tablet 3 times a day. Take one(1) tablet daily at bedtime for muscle cramps. magnesium hydroxide (MILK OF MAGNESIA) 400 mg/5 mL suspension Take 15 mL by mouth once daily as needed for Constipation. MULTI-VITAMIN ORAL Take by mouth. Not Taking pantoprazole DR (PROTONIX) 20 mg tablet TAKE 1 TABLET DAILY ON EMPTY STOMACH BEFORE BREAKFAST (30 MINUTES BEFORE MEAL) polyethylene glycol 3350 (MIRALAX) 17 gram/dose powder Take 17 g by mouth twice daily. polyethylene glycol 3350 (MIRALAX) 17 gram/dose powder Take 17 g by mouth once daily. 17 gm as needed in the evening. rOPINIRole (REQUIP) 0.5 mg tablet Take 0.5 mg by mouth three times daily. tamsulosin ER (FLOMAX) 0.4 mg cp24 TAKE 1 CAPSULE BY MOUTH DAILY AT BEDTIME. REVIEW OF SYSTEMS Review of Systems Constitutional: Negative. Respiratory: Negative. Cardiovascular: Negative. Gastrointestinal: Negative. Genitourinary: Negative. Skin: Negative. Neurological: Negative. Psychiatric/Behavioral: Negative. HISTORIES PAST MEDICAL HISTORY Diagnosis Date - Adenomatous colon polyp 11/26/2013 - Anomalous atrioventricular excitation - Kidney stones - Paralysis agitans (HCC) Parkinsons - PMH - PAST MEDICAL HISTORY OF pressure fractures in the back - Pure hypercholesterolemia - Right inguinal hernia 12/30/13 - Unspecified essential hypertension FAMILY HISTORY Problem Relation Age of Onset - Hypertension Mother - Hypertension Sister x2 - Diabetes Mother - Lipids Sister - Breast Cancer Mother diabetes - Headache Sister - other (Thryroid disease [Other]) Sister - Thyroid Mother - Diabetes Sister SOCIAL HISTORY Social History Substance Use Topics - Smoking status: Never Smoker - Smokeless tobacco: Never Used - Alcohol use No PHYSICAL EXAMINATION General appearance: Well appearing, alert, in no acute distress and well-hydrated, well nourished Skin: Skin color, texture, turgor normal, no suspicious rashes or lesions Respiratory:+ effort Cardiovascular: Not examined GI: Normal abdominal exam, Abdomen soft, non-tender. No masses, organomegaly Musculoskeletal: Negative Neuro: Negative Genitourinary: not examined Impression: (N40.1, N13.8) BPH with obstruction/lower urinary tract symptoms (primary encounter diagnosis) (N39.0) Recurrent UTI Plan: Cont cic daily if NH willing Check urine cx Fu to discuss permanent urethral cath vs. Spt if interested in the future Dawson Myrick Jr, MD 08/20/2018 Referring Provider: DAWSON MYRICK JR [[id number]] Allergies As of Date: 08/20/2018 Noted Allergy Reaction PENICILLINS 04/03/2007 4 - Hives SEROQUEL (QUETIAPINE FUMARATE) 06/28/2009 1 - Mental Status Change Comments: psychotic episode Date Reviewed: 08/20/2018 Reviewed by: Dawson Myrick Jr. - Fully Assessed Reason for Visit: Established Patient [175] Cmt: follow up/BPH and recurrent UTI Primary Visit Diagnosis:BPH with obstruction/lower urinary tract symptoms [N40.1, N13.8] Other Visit Diagnosis:Recurrent UTI [N39.0] Order(s):URINE CULTURE [SQURCUL] Order #: [id number] Prescriptions as of 08/20/2018 Sig: BACLOFEN 10 MG TABLET Take 10 mg by mouth three marquis* CARBIDOPA ER 50 MG-LEVODOPA 2* Take one(1) tablet six times * CEPHALEXIN 500 MG CAPSULE Take 500 mg by mouth four marquis* * CHOLECALCIFEROL (VITAMIN D3) * not taking DIAZEPAM 5 MG TABLET One half tablet 3 times a day* MAGNESIUM HYDROXIDE 400 MG/5 * Take 15 mL by mouth once samuel* MULTI-VITAMIN ORAL Take by mouth. Not Taking PANTOPRAZOLE 20 MG TABLET,DEL* TAKE 1 TABLET DAILY ON EMPTY * POLYETHYLENE GLYCOL 3350 17 G* Take 17 g by mouth twice samuel* POLYETHYLENE GLYCOL 3350 17 G* Take 17 g by mouth once daily* ROPINIROLE 0.5 MG TABLET Take 0.5 mg by mouth three ti* TAMSULOSIN 0.4 MG CAPSULE TAKE 1 CAPSULE BY MOUTH DAILY* Problem List As Of Date 08/20/2018 Noted Resolved LUMBAGO [M54.5] INVALID FOR* More... Unspecified essential hypertension [I10] INVALID FOR*04/13/2016 More... IMPAIRED FASTING GLUCOSE [R73.01] INVALID FOR* More... Paralysis agitans [G20] INVALID FOR* More... Routine general medical examination at [facility]*INVALID FOR*04/13/2016 More... Obesity [E66.9] INVALID FOR*04/13/2016 More... Elevated PSA [R97.20] INVALID FOR* More... Joint Pain [M25.50] INVALID FOR* More... Adenomatous colon polyp [D12.6] INVALID FOR* Constipation [K59.00] INVALID FOR* Visit Notes: >> Sulema Meadows Aug 20, 2018 3:01 PM Status: Signed Patient presents with: Established Patient: follow up/BPH and recurrent UTI Disposition: Return in about 1 year (around 08/20/2019). Follow-up and Disposition History Recorded Encounter Status:Closed by DAWSON MYRICK MD on 08/20/18 Observed: 07/08/2018 Status: F Source: [place] CULTURE, URINE 8:45 PM [facility] REPOSITORY Urine Culture ORGANISM 1: Proteus mirabilis [place] Count >100,000 ORGANISM 2: Proteus mirabilis [place] Count >100,000 Proteus mirabilis: REACTION Amoxacillin/Clavulanic Acid $ 4 S Ampicillin $ >=32 R Ampicillin/Sulbactam $ 8 S Cefazolin $ <=4 S Cefepime $ <=1 S Ceftriaxone $ <=1 S Ciprofloxacin $ >=4 R Ertapenim $$$ <=0.5 S Gentamicin $ <=1 S Levofloxacin $ >=8 R Nitrofurantoin $ 128 R Piperacillin/Tazobactam $$ <=4 S Tobramycin $ <=1 S Trimethoprim/Sulfametho $ >=320 R (NF) indicates non-formulary drug at [facility]. Approval by Infectious Disease Specialist required before non-formulary drugs may be ordered and/or dispensed. Proteus mirabilis: REACTION Amoxacillin/Clavulanic Acid $ 8 S Ampicillin $ >=32 R Ampicillin/Sulbactam $ 16 I Cefazolin $ 8 S Cefepime $ <=1 S Ceftriaxone $ <=1 S Ciprofloxacin $ >=4 R Ertapenim $$$ <=0.5 S Gentamicin $ <=1 S Levofloxacin $ >=8 R Nitrofurantoin $ 128 R Piperacillin/Tazobactam $$ <=4 S Tobramycin $ <=1 S Trimethoprim/Sulfametho $ >=320 R (NF) indicates non-formulary drug at [facility]. Approval by Infectious Disease Specialist required before non-formulary drugs may be ordered and/or dispensed. Performed By: #### M100.0650 #### [facility] [address] [place], [address] PROGRESS Observed: 04/10/2018 Status: COMPLETED Source: [place] 4:[address] [facility] REPOSITORY HNO ID: [id number] Author: Dawson Myrick Jr. Service: (none) Author Type: Physician Type: Progress Notes Filed: 04/10/2018 4:08 PM Note Text: ESTABLISHED PATIENT OFFICE VISIT HPI Shena Todd is a 62 year old male who presents bph and recurrent uti. Has been on flomax for bph for years. Was doing ok until last year has developed recurrent uti. cx reviewed. Mdr proteus and morganella. Unsure of length of longest course of abx. No fever. + dysuria. ua discussed today. +. No imaging recently. Ho dvt. On xarelto. Last psa 5.71 in 04/2016. Had catheter per patient at that time. ? ? 02/26/18 - ucx mdr proteus and morganella. Saw dr. douglas. At that time dysuria had resolved. Decided on no treatment. Suggested CIC to keep bladder empty. Discussed CIC with patient. Willing to undergo daily. 04/10/18 - [facility] indwelling mar catheter. cathing once daily currently. Does feel like has uti. LAB: Creatinine Date Value Ref Range Status 09/22/2013 0.63 (L) 0.70 - 1.40 mg/dL Final PSA (ng/mL) Date Value 04/13/2016 5.71 07/05/2009 9.72 No results found for: UGLUC, UBILI, UKET, SPGR, UHB, UPH, UPROT, UROBIL, NITRITES, UWBC, UCOLAP MEDICATIONS: cephALEXin (KEFLEX) 500 mg capsule Take 500 mg by mouth four times daily. pantoprazole DR (PROTONIX) 20 mg tablet TAKE 1 TABLET DAILY ON EMPTY STOMACH BEFORE BREAKFAST (30 MINUTES BEFORE MEAL) tamsulosin ER (FLOMAX) 0.4 mg cp24 TAKE 1 CAPSULE BY MOUTH DAILY AT BEDTIME. carbidopa-levodopa CR (SINEMET CR) 50-200 mg per tablet Take one(1) tablet six times a day. diazepam (VALIUM) 5 mg tablet One half tablet 3 times a day. Take one(1) tablet daily at bedtime for muscle cramps. polyethylene glycol 3350 (MIRALAX) 17 gram/dose powder Take 17 g by mouth once daily. 17 gm as needed in the evening. magnesium hydroxide (MILK OF MAGNESIA) 400 mg/5 mL suspension Take 15 mL by mouth once daily as needed for Constipation. rOPINIRole (REQUIP) 0.5 mg tablet Take 0.5 mg by mouth three times daily. baclofen (LIORESAL) 10 mg tablet Take 10 mg by mouth three times daily. polyethylene glycol 3350 (MIRALAX) 17 gram/dose powder Take 17 g by mouth twice daily. MULTI-VITAMIN ORAL Take by mouth. Not Taking CHOLECALCIFEROL (VITAMIN D3) 5,000 UNIT CAP not taking REVIEW OF SYSTEMS Review of Systems Constitutional: Negative. Respiratory: Negative. Cardiovascular: Negative. Gastrointestinal: Negative. Genitourinary: Negative. Skin: Negative. Neurological: Negative. Psychiatric/Behavioral: Negative. HISTORIES PAST MEDICAL HISTORY Diagnosis Date - Adenomatous colon polyp 11/26/2013 - Anomalous atrioventricular excitation - Kidney stones - Paralysis agitans (HCC) Parkinsons - PMH - PAST MEDICAL HISTORY OF pressure fractures in the back - Pure hypercholesterolemia - Right inguinal hernia 12/30/13 - Unspecified essential hypertension FAMILY HISTORY Problem Relation Age of Onset - Hypertension Mother - Hypertension Sister x2 - Diabetes Mother - Lipids Sister - Breast Cancer Mother diabetes - Headache Sister - Thryroid disease [Other] [OTHER] Sister - Thyroid Mother - Diabetes Sister SOCIAL HISTORY Social History Substance Use Topics - Smoking status: Never Smoker - Smokeless tobacco: Never Used - Alcohol use No PHYSICAL EXAMINATION General appearance: Well appearing, alert, in no acute distress and well-hydrated, well nourished Skin: Skin color, texture, turgor normal, no suspicious rashes or lesions Respiratory:+ effort Cardiovascular: Not examined GI: Normal abdominal exam, Abdomen soft, non-tender. No masses, organomegaly Musculoskeletal: Negative Neuro: Negative Genitourinary: not examined Impression: (N39.0, R31.9) Urinary tract infection with hematuria, site unspecified (primary encounter diagnosis) (N40.1, N13.8) BPH with obstruction/lower urinary tract symptoms Plan: Check urine cx Cont cic once daily Dawson Myrick Jr, MD 04/10/2018 Observed: 04/10/2018 Status: F Source: [place] CULTURE, URINE 4:00 AM [facility] REPOSITORY Urine Culture Culture exhibits no growth. Performed By: #### M100.0650 #### [facility] [address] [place], [address] Observed: 04/09/2018 Status: F Source: [place] URINE CULTURE 4:[address] [facility] REPOSITORY Sp. Request/Comment: - Specimen received in preservative Culture Result - No growth (<1,000 CFU/ml) Performed By: #### URCUL #### [facility] [address] [facility] [phone] [facility] [address] [place], [place] [address] CNOV Observed: 04/09/2018 Status: COMPLETED Source: [place] 3:[address] [facility] REPOSITORY Office Visit (UROLMD) SHENA TODD ([id number]) 1955 M Date Time Provider Department 04/09/18 3:45 PM DAWSON MYRICK JR UROLMD During your visit today, we recorded the following information about you: Dawson Myrick Jr, MD 04/10/2018 4:08 PM Signed ESTABLISHED PATIENT OFFICE VISIT HPI Shena Christiano Peyton is a 62 year old male who presents bph and recurrent uti. Has been on flomax for bph for years. Was doing ok until last year has developed recurrent uti. cx reviewed. Mdr proteus and morganella. Unsure of length of longest course of abx. No fever. + dysuria. ua discussed today. +. No imaging recently. Ho dvt. On xarelto. Last psa 5.71 in 04/2016. Had catheter per patient at that time. ? ? 02/26/18 - ucx mdr proteus and morganella. Saw dr. douglas. At that time dysuria had resolved. Decided on no treatment. Suggested CIC to keep bladder empty. Discussed CIC with patient. Willing to undergo daily. 04/10/18 - [facility] indwelling mar catheter. cathing once daily currently. Does feel like has uti. LAB: Creatinine Date Value Ref Range Status 09/22/2013 0.63 (L) 0.70 - 1.40 mg/dL Final PSA (ng/mL) Date Value 04/13/2016 5.71 07/05/2009 9.72 No results found for: UGLUC, UBILI, UKET, SPGR, UHB, UPH, UPROT, UROBIL, NITRITES, UWBC, UCOLAP MEDICATIONS: cephALEXin (KEFLEX) 500 mg capsule Take 500 mg by mouth four times daily. pantoprazole DR (PROTONIX) 20 mg tablet TAKE 1 TABLET DAILY ON EMPTY STOMACH BEFORE BREAKFAST (30 MINUTES BEFORE MEAL) tamsulosin ER (FLOMAX) 0.4 mg cp24 TAKE 1 CAPSULE BY MOUTH DAILY AT BEDTIME. carbidopa-levodopa CR (SINEMET CR) 50-200 mg per tablet Take one(1) tablet six times a day. diazepam (VALIUM) 5 mg tablet One half tablet 3 times a day. Take one(1) tablet daily at bedtime for muscle cramps. polyethylene glycol 3350 (MIRALAX) 17 gram/dose powder Take 17 g by mouth once daily. 17 gm as needed in the evening. magnesium hydroxide (MILK OF MAGNESIA) 400 mg/5 mL suspension Take 15 mL by mouth once daily as needed for Constipation. rOPINIRole (REQUIP) 0.5 mg tablet Take 0.5 mg by mouth three times daily. baclofen (LIORESAL) 10 mg tablet Take 10 mg by mouth three times daily. polyethylene glycol 3350 (MIRALAX) 17 gram/dose powder Take 17 g by mouth twice daily. MULTI-VITAMIN ORAL Take by mouth. Not Taking CHOLECALCIFEROL (VITAMIN D3) 5,000 UNIT CAP not taking REVIEW OF SYSTEMS Review of Systems Constitutional: Negative. Respiratory: Negative. Cardiovascular: Negative. Gastrointestinal: Negative. Genitourinary: Negative. Skin: Negative. Neurological: Negative. Psychiatric/Behavioral: Negative. HISTORIES PAST MEDICAL HISTORY Diagnosis Date - Adenomatous colon polyp 11/26/2013 - Anomalous atrioventricular excitation - Kidney stones - Paralysis agitans (HCC) Parkinsons - PMH - PAST MEDICAL HISTORY OF pressure fractures in the back - Pure hypercholesterolemia - Right inguinal hernia 12/30/13 - Unspecified essential hypertension FAMILY HISTORY Problem Relation Age of Onset - Hypertension Mother - Hypertension Sister x2 - Diabetes Mother - Lipids Sister - Breast Cancer Mother diabetes - Headache Sister - Thryroid disease [Other] [OTHER] Sister - Thyroid Mother - Diabetes Sister SOCIAL HISTORY Social History Substance Use Topics - Smoking status: Never Smoker - Smokeless tobacco: Never Used - Alcohol use No PHYSICAL EXAMINATION General appearance: Well appearing, alert, in no acute distress and well-hydrated, well nourished Skin: Skin color, texture, turgor normal, no suspicious rashes or lesions Respiratory:+ effort Cardiovascular: Not examined GI: Normal abdominal exam, Abdomen soft, non-tender. No masses, organomegaly Musculoskeletal: Negative Neuro: Negative Genitourinary: not examined Impression: (N39.0, R31.9) Urinary tract infection with hematuria, site unspecified (primary encounter diagnosis) (N40.1, N13.8) BPH with obstruction/lower urinary tract symptoms Plan: Check urine cx Cont cic once daily Dawson Myrick Jr, MD 04/10/2018 Referring Provider: DAWSON MYRICK JR [[id number]] Allergies As of Date: 04/09/2018 Noted Allergy Reaction PENICILLINS 04/03/2007 4 - Hives SEROQUEL (QUETIAPINE FUMARATE) 06/28/2009 1 - Mental Status Change Comments: psychotic episode Date Reviewed: 04/09/2018 Reviewed by: Dawson Myrick Jr. - Fully Assessed Reason for Visit: Established Patient [175] Cmt: Blood in urine with catherization Primary Visit Diagnosis:Urinary tract infection with hematuria, site unspecified [N39.0, R31.9] Other Visit Diagnosis:BPH with obstruction/lower urinary tract symptoms [N40.1, N13.8] Order(s):UA DIP, URINE (POC) [7250051] Order #: [id number]. #:[id number] URINE CULTURE [SQURCUL] Order #: [id number]. #:[id number] Prescriptions as of 04/09/2018 Sig: CEPHALEXIN 500 MG CAPSULE Take 500 mg by mouth four marquis* PANTOPRAZOLE 20 MG TABLET,DEL* TAKE 1 TABLET DAILY ON EMPTY * TAMSULOSIN 0.4 MG CAPSULE TAKE 1 CAPSULE BY MOUTH DAILY* CARBIDOPA ER 50 MG-LEVODOPA 2* Take one(1) tablet six times * DIAZEPAM 5 MG TABLET One half tablet 3 times a day* POLYETHYLENE GLYCOL 3350 17 G* Take 17 g by mouth once daily* MAGNESIUM HYDROXIDE 400 MG/5 * Take 15 mL by mouth once samuel* ROPINIROLE 0.5 MG TABLET Take 0.5 mg by mouth three ti* BACLOFEN 10 MG TABLET Take 10 mg by mouth three marquis* POLYETHYLENE GLYCOL 3350 17 G* Take 17 g by mouth twice samuel* MULTI-VITAMIN ORAL Take by mouth. Not Taking * CHOLECALCIFEROL (VITAMIN D3) * not taking Problem List As Of Date 04/09/2018 Noted Resolved LUMBAGO [M54.5] INVALID FOR* More... Unspecified essential hypertension [I10] INVALID FOR*04/13/2016 More... IMPAIRED FASTING GLUCOSE [R73.01] INVALID FOR* More... Paralysis agitans [G20] INVALID FOR* More... Routine general medical examination at a health*INVALID FOR*04/13/2016 More... Obesity [E66.9] INVALID FOR*04/13/2016 More... Elevated PSA [R97.20] INVALID FOR* More... Joint Pain [M25.50] INVALID FOR* More... Adenomatous colon polyp [D12.6] INVALID FOR* Constipation [K59.00] INVALID FOR* Disposition: Return if symptoms worsen or fail to improve. Follow-up and Disposition History Recorded Encounter Status:Closed by DAWSON MYRICK MD on 04/10/18 URINALYSIS, ROUTINE Collected: 04/01/2018 Status: F Source: [place] (DIPSTICK) 12:15 AM [facility] REPOSITORY Order Comment: COLOR OF URINE MAY AFFECT DIPSTICK RESULTS. How was Urine Obtained? CATHETER SPECIMEN TYPE CODE TESTS RESULT OUT OF RANGE REFERENCE UNITS LAB L400.3000 Yellow COLOR Normal Anu LAB L400.3050 Clear Normal CLARITY Cloudy LAB L400.3200 Normal mg/dl Normal GLUCOSE, UR Normal LAB L400.3300 Negative mg/dL Normal BILIRUBIN URINE Negative LAB L400.3400 Negative mg/dl Normal KETONE UR Negative LAB L400.3465 1.002-1.030 Normal SP.GR. DIPSTX 1.015 LAB L400.3550 5.0 - 8.0 pH UR Normal 9.0 LAB L400.3600 Negative mg/dl High PROT DIPSTX 500 LAB L400.3700 Normal mg/dl Normal UROBILI Normal LAB L400.3750 Negative High NITRITE UR Positive LAB L400.3780 Negative /ul High OCCULT BLOOD-UR 250 LAB L400.3800 Negative /ul High LEUK ESTERASE 500 Performed By: #### L400.2010 #### [facility] [address] [place], [place], [id number] Observed: 04/01/2018 Status: F Source: [place] CULTURE, URINE 12:15 AM [facility] REPOSITORY Urine Culture ORGANISM 1: Proteus mirabilis [place] Count >100,000 Proteus mirabilis: REACTION Amoxacillin/Clavulanic Acid $ 4 S Ampicillin $ >=32 R Ampicillin/Sulbactam $ 16 I Cefazolin $ <=4 S Cefepime $ <=1 S Ceftriaxone $ <=1 S Ciprofloxacin $ >=4 R Ertapenim $$$ <=0.5 S Gentamicin $ <=1 S Levofloxacin $ >=8 R Nitrofurantoin $ 128 R Piperacillin/Tazobactam $$ <=4 S Tobramycin $ <=1 S Trimethoprim/Sulfametho $ >=320 R (NF) indicates non-formulary drug at [facility]. Approval by Infectious Disease Specialist required before non-formulary drugs may be ordered and/or dispensed. Performed By: #### M100.0650 #### [facility] [address] [place], [place], [id number] CBC-COMPLETE BLOOD CNT Collected: 03/26/2018 Status: F Source: [place] NO DIFF 5:30 AM [facility] REPOSITORY Order Comment: ROOM 107 TYPE CODE TESTS RESULT OUT OF RANGE REFERENCE UNITS LAB L100.1000 4.4-11.0 K/mm3 Normal WBC 6.9 LAB L100.1200 4.6-6.2 M/mm3 Low RBC 4.57 LAB L100.1300 13.0-16.5 g/dl Normal HGB 13.8 LAB L100.1400 40-54 % Normal HCT 41.7 LAB L100.1500 80-94 fL Normal MCV 91.2 LAB L100.1600 27.0-32.0 pg Normal MCH 30.2 LAB L100.1700 32-36 g/gl Normal MCHC 33.1 LAB L100.1810 11.6-14.6 % Normal RDW CV 12.5 LAB L100.1820 35.1-43.9 fl Normal RDW SD 41.9 LAB L100.1900 150-450 K/mm3 Normal PLT 150 LAB L100.2000 6.2-12.0 fl Normal MPV 11.6 Performed By: #### L100.0500 #### [facility] [address] [place], [address] COMPREHENSIVE METABOLIC Collected: 03/26/2018 Status: F Source: [facility] 5:30 AM [facility] REPOSITORY Order Comment: ROOM 107 TYPE CODE TESTS RESULT OUT OF RANGE REFERENCE UNITS LAB L501.0100 74-106 mg/dL Normal GLU 76 Result Comment: Please note revised GLUCOSE reference range effective 2017. LAB L501.1000 7-18 mg/dL High BUN 20 LAB L501.1100 0.70-1.30 mg/dL Normal CREAT,SERUM 0.76 Result Comment: The validity of the calculated GFR AND GFRAA in patients over 70 years has not been determined. Clinical correlation is essential. LAB L501.1110 >60 mL/min Normal EST GFR 109 Result Comment: Non- GFR Calc LAB L501.1115 >60 mL/min Normal EST GFR - AA 132 Result Comment: GFR Calc LAB L501.1300 10-20 RATIO High BUN/CRE 26.1 LAB L501.1500 6.4-8.2 g/dL T Normal PROT 6.5 LAB L501.1800 3.2-5.0 g/dL Normal ALB 3.2 LAB L501.1950 2.2-4.2 g/dL Normal GLOB 3.3 LAB L501.2000 0.9-2.4 RATIO Normal A/G 1.0 LAB L501.2200 8.5-10.1 mg/dL Low CA 8.4 LAB L501.4100 15-37 U/L Normal AST 18 LAB L501.4305 45-117 U/L Normal ALK P 47 LAB L501.4405 16-61 U/L Low ALT 9 LAB L501.4600 0.20-1.00 mg/dL T Normal BILI 0.80 LAB L501.5300 136-145 mmol/L NA Normal 145 LAB L501.5600 3.5-5.1 mmol/L K Normal 3.8 LAB L501.5900 98-107 mmol/L High CL 112 LAB L501.6100 21.0-32.0 mmol/L Normal CO2 27.0 LAB L501.6200 5-15 Normal GAP 6 Performed By: #### L500.4050 #### [facility] [address] [place], [address] PROGRESS Observed: 02/26/2018 Status: COMPLETED Source: [place] 1:[address] [facility] REPOSITORY HNO ID: [id number] Author: Dawson Myrick Jr. Service: (none) Author Type: Physician Type: Progress Notes Filed: 02/26/2018 1:38 PM Note Text: ESTABLISHED PATIENT OFFICE VISIT HPI Shena Todd is a 62 year old male who presents bph and recurrent uti. Has been on flomax for bph for years. Was doing ok until last year has developed recurrent uti. cx reviewed. Mdr proteus and morganella. Unsure of length of longest course of abx. No fever. + dysuria. ua discussed today. +. No imaging recently. Ho dvt. On xarelto. Last psa 5.71 in 04/2016. Had catheter per patient at that time. ? 02/26/18 - ucx mdr proteus and morganella. Saw dr. douglas. At that time dysuria had resolved. Decided on no treatment. Suggested CIC to keep bladder empty. Discussed CIC with patient. Willing to undergo daily. LAB: Creatinine Date Value Ref Range Status 09/22/2013 0.63 (L) 0.70 - 1.40 mg/dL Final PSA (ng/mL) Date Value 04/13/2016 5.71 07/05/2009 9.72 No results found for: UGLUC, UBILI, UKET, SPGR, UHB, UPH, UPROT, UROBIL, NITRITES, UWBC, UCOLAP MEDICATIONS: pantoprazole DR (PROTONIX) 20 mg tablet TAKE 1 TABLET DAILY ON EMPTY STOMACH BEFORE BREAKFAST (30 MINUTES BEFORE MEAL) tamsulosin ER (FLOMAX) 0.4 mg cp24 TAKE 1 CAPSULE BY MOUTH DAILY AT BEDTIME. carbidopa-levodopa CR (SINEMET CR) 50-200 mg per tablet Take one(1) tablet six times a day. diazepam (VALIUM) 5 mg tablet One half tablet 3 times a day. Take one(1) tablet daily at bedtime for muscle cramps. polyethylene glycol 3350 (MIRALAX) 17 gram/dose powder Take 17 g by mouth once daily. 17 gm as needed in the evening. magnesium hydroxide (MILK OF MAGNESIA) 400 mg/5 mL suspension Take 15 mL by mouth once daily as needed for Constipation. rOPINIRole (REQUIP) 0.5 mg tablet Take 0.5 mg by mouth three times daily. baclofen (LIORESAL) 10 mg tablet Take 10 mg by mouth three times daily. polyethylene glycol 3350 (MIRALAX) 17 gram/dose powder Take 17 g by mouth twice daily. MULTI-VITAMIN ORAL Take by mouth. Not Taking CHOLECALCIFEROL (VITAMIN D3) 5,000 UNIT CAP not taking REVIEW OF SYSTEMS Review of Systems Constitutional: Negative. Respiratory: Negative. Cardiovascular: Negative. Gastrointestinal: Negative. Genitourinary: Negative. Skin: Negative. Neurological: Negative. Psychiatric/Behavioral: Negative. HISTORIES PAST MEDICAL HISTORY Diagnosis Date - Adenomatous colon polyp 11/26/2013 - Anomalous atrioventricular excitation - Kidney stones - Paralysis agitans (HCC) Parkinsons - PMH - PAST MEDICAL HISTORY OF pressure fractures in the back - Pure hypercholesterolemia - Right inguinal hernia 12/30/13 - Unspecified essential hypertension FAMILY HISTORY Problem Relation Age of Onset - Hypertension Mother - Hypertension Sister x2 - Diabetes Mother - Lipids Sister - Breast Cancer Mother diabetes - Headache Sister - Thryroid disease [Other] [OTHER] Sister - Thyroid Mother - Diabetes Sister SOCIAL HISTORY Social History Substance Use Topics - Smoking status: Never Smoker - Smokeless tobacco: Never Used - Alcohol use No PHYSICAL EXAMINATION General appearance: Well appearing, alert, in no acute distress, well-hydrated, well nourished Skin: Skin color, texture, turgor normal, no suspicious rashes or lesions Respiratory:+ effort Cardiovascular: Not examined GI: Normal abdominal exam, Abdomen soft, non-tender. No masses, organomegaly Musculoskeletal: Negative Neuro: Negative Genitourinary: not examined Impression: (N40.1, N13.8) BPH with obstruction/lower urinary tract symptoms (primary encounter diagnosis) Plan: cic 1x/day Cont flomax rto 6 months Dawson Myrick Jr, MD 02/26/2018 CNOV Observed: 02/26/2018 Status: COMPLETED Source: [place] 1:[address] [facility] REPOSITORY Office Visit (UROLMD) SHENA TODD ([id number]) 1955 M Date Time Provider Department 02/26/18 1:15 PM DAWSON MYRICK JR UROLMD During your visit today, we recorded the following information about you: Weight Height 70.4 kg 1.575 m [facility] 02/26/2018 1:19 PM Signed Patient presents with: Established Patient: 3 week follow up/US results Dawson Myrick Jr, MD 02/26/2018 1:38 PM Signed ESTABLISHED PATIENT OFFICE VISIT HPI Shena Todd is a 62 year old male who presents bph and recurrent uti. Has been on flomax for bph for years. Was doing ok until last year has developed recurrent uti. cx reviewed. Mdr proteus and morganella. Unsure of length of longest course of abx. No fever. + dysuria. ua discussed today. +. No imaging recently. Ho dvt. On xarelto. Last psa 5.71 in 04/2016. Had catheter per patient at that time. ? 02/26/18 - ucx mdr proteus and morganella. Saw dr. douglas. At that time dysuria had resolved. Decided on no treatment. Suggested CIC to keep bladder empty. Discussed CIC with patient. Willing to undergo daily. LAB: Creatinine Date Value Ref Range Status 09/22/2013 0.63 (L) 0.70 - 1.40 mg/dL Final PSA (ng/mL) Date Value 04/13/2016 5.71 07/05/2009 9.72 No results found for: UGLUC, UBILI, UKET, SPGR, UHB, UPH, UPROT, UROBIL, NITRITES, UWBC, UCOLAP MEDICATIONS: pantoprazole DR (PROTONIX) 20 mg tablet TAKE 1 TABLET DAILY ON EMPTY STOMACH BEFORE BREAKFAST (30 MINUTES BEFORE MEAL) tamsulosin ER (FLOMAX) 0.4 mg cp24 TAKE 1 CAPSULE BY MOUTH DAILY AT BEDTIME. carbidopa-levodopa CR (SINEMET CR) 50-200 mg per tablet Take one(1) tablet six times a day. diazepam (VALIUM) 5 mg tablet One half tablet 3 times a day. Take one(1) tablet daily at bedtime for muscle cramps. polyethylene glycol 3350 (MIRALAX) 17 gram/dose powder Take 17 g by mouth once daily. 17 gm as needed in the evening. magnesium hydroxide (MILK OF MAGNESIA) 400 mg/5 mL suspension Take 15 mL by mouth once daily as needed for Constipation. rOPINIRole (REQUIP) 0.5 mg tablet Take 0.5 mg by mouth three times daily. baclofen (LIORESAL) 10 mg tablet Take 10 mg by mouth three times daily. polyethylene glycol 3350 (MIRALAX) 17 gram/dose powder Take 17 g by mouth twice daily. MULTI-VITAMIN ORAL Take by mouth. Not Taking CHOLECALCIFEROL (VITAMIN D3) 5,000 UNIT CAP not taking REVIEW OF SYSTEMS Review of Systems Constitutional: Negative. Respiratory: Negative. Cardiovascular: Negative. Gastrointestinal: Negative. Genitourinary: Negative. Skin: Negative. Neurological: Negative. Psychiatric/Behavioral: Negative. HISTORIES PAST MEDICAL HISTORY Diagnosis Date - Adenomatous colon polyp 11/26/2013 - Anomalous atrioventricular excitation - Kidney stones - Paralysis agitans (HCC) Parkinsons - PMH - PAST MEDICAL HISTORY OF pressure fractures in the back - Pure hypercholesterolemia - Right inguinal hernia 12/30/13 - Unspecified essential hypertension FAMILY HISTORY Problem Relation Age of Onset - Hypertension Mother - Hypertension Sister x2 - Diabetes Mother - Lipids Sister - Breast Cancer Mother diabetes - Headache Sister - Thryroid disease [Other] [OTHER] Sister - Thyroid Mother - Diabetes Sister SOCIAL HISTORY Social History Substance Use Topics - Smoking status: Never Smoker - Smokeless tobacco: Never Used - Alcohol use No PHYSICAL EXAMINATION General appearance: Well appearing, alert, in no acute distress, well-hydrated, well nourished Skin: Skin color, texture, turgor normal, no suspicious rashes or lesions Respiratory:+ effort Cardiovascular: Not examined GI: Normal abdominal exam, Abdomen soft, non-tender. No masses, organomegaly Musculoskeletal: Negative Neuro: Negative Genitourinary: not examined Impression: (N40.1, N13.8) BPH with obstruction/lower urinary tract symptoms (primary encounter diagnosis) Plan: cic 1x/day Cont flomax rto 6 months Dawson Myrick Jr, MD 02/26/2018 Allergies As of Date: 02/26/2018 Noted Allergy Reaction PENICILLINS 04/03/2007 4 - Hives SEROQUEL (QUETIAPINE FUMARATE) 06/28/2009 1 - Mental Status Change Comments: psychotic episode Date Reviewed: 02/26/2018 Reviewed by: Dawson Myrick Jr. - Fully Assessed Reason for Visit: Established Patient [175] Cmt: 3 week follow up/US results Primary Visit Diagnosis:BPH with obstruction/lower urinary tract symptoms [N40.1, N13.8] Prescriptions as of 02/26/2018 Sig: PANTOPRAZOLE 20 MG TABLET,DEL* TAKE 1 TABLET DAILY ON EMPTY * TAMSULOSIN 0.4 MG CAPSULE TAKE 1 CAPSULE BY MOUTH DAILY* CARBIDOPA ER 50 MG-LEVODOPA 2* Take one(1) tablet six times * DIAZEPAM 5 MG TABLET One half tablet 3 times a day* POLYETHYLENE GLYCOL 3350 17 G* Take 17 g by mouth once daily* MAGNESIUM HYDROXIDE 400 MG/5 * Take 15 mL by mouth once samuel* ROPINIROLE 0.5 MG TABLET Take 0.5 mg by mouth three ti* BACLOFEN 10 MG TABLET Take 10 mg by mouth three marquis* POLYETHYLENE GLYCOL 3350 17 G* Take 17 g by mouth twice samuel* MULTI-VITAMIN ORAL Take by mouth. Not Taking * CHOLECALCIFEROL (VITAMIN D3) * not taking Problem List As Of Date 02/26/2018 Noted Resolved LUMBAGO [M54.5] INVALID FOR* More... Unspecified essential hypertension [I10] INVALID FOR*04/13/2016 More... IMPAIRED FASTING GLUCOSE [R73.01] INVALID FOR* More... Paralysis agitans [G20] INVALID FOR* More... Routine general medical examination at a health*INVALID FOR*04/13/2016 More... Obesity [E66.9] INVALID FOR*04/13/2016 More... Elevated PSA [R97.20] INVALID FOR* More... Joint Pain [M25.50] INVALID FOR* More... Adenomatous colon polyp [D12.6] INVALID FOR* Constipation [K59.00] INVALID FOR* Visit Notes: >> Sulema Meadows Feb 26, 2018 1:19 PM Status: Signed Patient presents with: Established Patient: 3 week follow up/US results Disposition: Return in about 6 months (around 08/28/2018). Follow-up and Disposition History Recorded Encounter Status:Closed by DAWSON MYRICK MD on 02/26/18 US KIDNEY/BLADDER Observed: 02/06/2018 Status: F Source: [place] 2:21 PM [facility] REPOSITORY * * *Final Report* * * DATE OF EXAM: Feb 06 2018 2:21PM [facility] 1055 - US KIDNEY/BLADDER / PROCEDURE REASON: multiple diagnoses * * * * Physician Interpretation * * * * EXAMINATION: ULTRASOUND KIDNEY/BLADDER CLINICAL HISTORY: BPH, chronic prostatitis and recurrent UTI. TECHNIQUE: Sonography of the kidneys and urinary bladder was performed. Images were obtained and stored in a permanent archive. MQ: UR_1 COMPARISON: None RESULT: Right Kidney: -Renal length: 12.9 cm -Parenchyma: Normal parenchymal echogenicity. Normal parenchymal thickness measuring 1.3 cm. -Collecting system: No hydronephrosis. -Calculus: There is a tiny 3 mm hyperechoic focus in the interpolar kidney with questionable posterior shadowing. -Lesion: None. Left Kidney: -Renal length: 13.1 cm -Parenchyma: Normal parenchymal echogenicity. Normal parenchymal thickness measuring 1.4 cm. -Collecting system: No hydronephrosis. -Calculus: No echogenic, shadowing calculus. -Lesion: None. Bladder: Prevoid volume 226 cc. Post void volume was not obtained (patient was unable to void). There is bladder wall thickening measuring 5 mm, with questionable debris in the bladder. Enlarged prostate is also noted. IMPRESSION: Findings are suggestive of tiny right renal calculus. Enlarged prostate with bladder wall thickening. Private Investigator Surveillance: PSCB Transcribe Date/Time: Feb 07 2018 12:26P Dictated by : ALEKSANDR OWENS MD This examination was interpreted and the report reviewed and electronically signed by: ALEKSANDR OWENS MD on Feb 07 2018 12:31PM EST [id number] Observed: 02/06/2018 Status: COMPLETED Source: [place] 1:[address] [facility] REPOSITORY HNO ID: [id number] Author: Liliana Mosher Rdms Service: (none) Author Type: (none) Type: Progress Notes Filed: 02/06/2018 2:22 PM Note Text: Radiology Service Progress Note PATIENT NAME: Shena Todd DATE OF SERVICE: February 06, 2018 TIME: 1:36 PM PATIENT IDENTITY VERIFICATION COMPLETED USING TWO (2) METHODS: Patient confirmed name verbally and Date of . PATIENT GENDER DATA: Male PATIENT RELEVANT IMPLANT DATA REVIEWED: Not Applicable RADIOLOGY DEPARTMENT: Ultrasound PERIPHERAL IV DATA: Not applicable SIGNED BY: Liliana Mosher Rdms February 06, 2018 1:36 PM Observed: 02/05/2018 Status: F Source: [place] URINE CULTURE 1:[address] [facility] REPOSITORY Sp. Request/Comment: - Specimen received in preservative Culture Result - >=100,000 CFU/ml Proteus mirabilis --> ABNORMAL ALERT Call the lab ([phone]) in 72 hours if susceptibility testing for ertapenem is required. --> ABNORMAL ALERT ORGANISM: Proteus mirabilis METHOD: Minimum inhibitory concentration(Vitek) Antibiotic Interp KONSTANTIN Status Ampicillin RESISTANT >=32 F Gentamicin SUSCEPTIBLE <=1 F Trimeth sulfameth RESISTANT >=320 F Cefazolin RESISTANT 32 F Ciprofloxacin RESISTANT >=4 F Nitrofurantoin RESISTANT 256 F Piperacillin/Tazobac SUSCEPTIBLE <=4 F Ampicillin Sulbact RESISTANT >=32 F Ceftriaxone SUSCEPTIBLE <=1 F Meropenem SUSCEPTIBLE 0.5 F Performed By: #### URCUL #### [facility] [address] [place] [address] [place] [address] PROGRESS Observed: 02/05/2018 Status: COMPLETED Source: [place] 11:[address] [facility] REPOSITORY HNO ID: [id number] Author: Dawson Myrick Service: (none) Author Type: Physician Type: Progress Notes Filed: 02/05/2018 11:31 AM Note Text: NEW PATIENT HISTORY AND PHYSICAL EXAM PATIENT INFO: Shena Todd 62 year old REFERRING PROVIDER: JOCELYNE GARCIA NORMAN M PCP: Shena Lorenzana MD HPI Shena Todd is a 62 year old male refer for bph and recurrent uti. Has been on flomax for bph for years. Was doing ok until last year has developed recurrent uti. cx reviewed. Mdr proteus and morganella. Unsure of length of longest course of abx. No fever. + dysuria. ua discussed today. +. No imaging recently. Ho dvt. On xarelto. Last psa 5.71 in 04/2016. Had catheter per patient at that time. Review of Systems Constitutional: Negative. Respiratory: Negative. Cardiovascular: Negative. Gastrointestinal: Negative. Genitourinary: Negative. Skin: Negative. Neurological: Negative. Psychiatric/Behavioral: Negative. LAB: Creatinine Date Value Ref Range Status 09/22/2013 0.63 (L) 0.70 - 1.40 mg/dL Final PSA (ng/mL) Date Value 04/13/2016 5.71 07/05/2009 9.72 No results found for: UGLUC, UBILI, UKET, SPGR, UHB, UPH, UPROT, UROBIL, NITRITES, UWBC, UCOLAP MEDICATIONS: pantoprazole DR (PROTONIX) 20 mg tablet TAKE 1 TABLET DAILY ON EMPTY STOMACH BEFORE BREAKFAST (30 MINUTES BEFORE MEAL) tamsulosin ER (FLOMAX) 0.4 mg cp24 TAKE 1 CAPSULE BY MOUTH DAILY AT BEDTIME. carbidopa-levodopa CR (SINEMET CR) 50-200 mg per tablet Take one(1) tablet six times a day. diazepam (VALIUM) 5 mg tablet One half tablet 3 times a day. Take one(1) tablet daily at bedtime for muscle cramps. polyethylene glycol 3350 (MIRALAX) 17 gram/dose powder Take 17 g by mouth once daily. 17 gm as needed in the evening. magnesium hydroxide (MILK OF MAGNESIA) 400 mg/5 mL suspension Take 15 mL by mouth once daily as needed for Constipation. rOPINIRole (REQUIP) 0.5 mg tablet Take 0.5 mg by mouth three times daily. baclofen (LIORESAL) 10 mg tablet Take 10 mg by mouth three times daily. polyethylene glycol 3350 (MIRALAX) 17 gram/dose powder Take 17 g by mouth twice daily. MULTI-VITAMIN ORAL Take by mouth. Not Taking CHOLECALCIFEROL (VITAMIN D3) 5,000 UNIT CAP not taking HISTORIES PAST MEDICAL HISTORY Diagnosis Date - Adenomatous colon polyp 11/26/2013 - Anomalous atrioventricular excitation - Kidney stones - Paralysis agitans (HCC) Parkinsons - PMH - PAST MEDICAL HISTORY OF pressure fractures in the back - Pure hypercholesterolemia - Right inguinal hernia 12/30/13 - Unspecified essential hypertension FAMILY HISTORY Problem Relation Age of Onset - Hypertension Mother - Hypertension Sister x2 - Diabetes Mother - Lipids Sister - Breast Cancer Mother diabetes - Headache Sister - Thryroid disease [Other] [OTHER] Sister - Thyroid Mother - Diabetes Sister SOCIAL HISTORY Social History Substance Use Topics - Smoking status: Never Smoker - Smokeless tobacco: Never Used - Alcohol use No PHYSICAL EXAMINATION Wt 68.9 kg (152 lb) BMI 27.80 kg/m? General appearance: Well appearing, alert, in no acute distress, well-hydrated, well nourished Skin: Skin color, texture, turgor normal, no suspicious rashes or lesions Respiratory:+ effort Cardiovascular: Not examined GI: Normal abdominal exam, Abdomen soft, non-tender. No masses, organomegaly Musculoskeletal: normal ROM Neuro: No gross neurologic defecits Genitourinary: not examined ASSESSMENT: (N40.1, N13.8) BPH with obstruction/lower urinary tract symptoms (primary encounter diagnosis) (N41.1) Chronic prostatitis PLAN: Urine cx - treat appropriately, would start with 3 weeks. May need ID referral Renal us Set for 3 week fu Will need repeat psa at some point Dawson Myrick Jr, MD CNOV Observed: 02/05/2018 Status: COMPLETED Source: [place] 11:[address] [facility] REPOSITORY Office Visit (UROLMD) SHENA TODD ([id number]) 1955 M Date Time Provider Department 02/05/18 11:00 AM DAWSON MYRICK JR During your visit today, we recorded the following information about you: Weight 68.9 kg Sulema Franks Ma 02/05/2018 10:36 AM Signed Patient presents with: New Patient: Enlarged Prostate,BPH Dawson Myrick Jr, MD 02/05/2018 11:31 AM Signed NEW PATIENT HISTORY AND PHYSICAL EXAM PATIENT INFO: Shena Todd 62 year old REFERRING PROVIDER: JOCELYNE GARCIA NORMAN M PCP: Shena Lorenzana MD HPI Shena Todd is a 62 year old male refer for bph and recurrent uti. Has been on flomax for bph for years. Was doing ok until last year has developed recurrent uti. cx reviewed. Mdr proteus and morganella. Unsure of length of longest course of abx. No fever. + dysuria. ua discussed today. +. No imaging recently. Ho dvt. On xarelto. Last psa 5.71 in 04/2016. Had catheter per patient at that time. Review of Systems Constitutional: Negative. Respiratory: Negative. Cardiovascular: Negative. Gastrointestinal: Negative. Genitourinary: Negative. Skin: Negative. Neurological: Negative. Psychiatric/Behavioral: Negative. LAB: Creatinine Date Value Ref Range Status 09/22/2013 0.63 (L) 0.70 - 1.40 mg/dL Final PSA (ng/mL) Date Value 04/13/2016 5.71 07/05/2009 9.72 No results found for: UGLUC, UBILI, UKET, SPGR, UHB, UPH, UPROT, UROBIL, NITRITES, UWBC, UCOLAP MEDICATIONS: pantoprazole DR (PROTONIX) 20 mg tablet TAKE 1 TABLET DAILY ON EMPTY STOMACH BEFORE BREAKFAST (30 MINUTES BEFORE MEAL) tamsulosin ER (FLOMAX) 0.4 mg cp24 TAKE 1 CAPSULE BY MOUTH DAILY AT BEDTIME. carbidopa-levodopa CR (SINEMET CR) 50-200 mg per tablet Take one(1) tablet six times a day. diazepam (VALIUM) 5 mg tablet One half tablet 3 times a day. Take one(1) tablet daily at bedtime for muscle cramps. polyethylene glycol 3350 (MIRALAX) 17 gram/dose powder Take 17 g by mouth once daily. 17 gm as needed in the evening. magnesium hydroxide (MILK OF MAGNESIA) 400 mg/5 mL suspension Take 15 mL by mouth once daily as needed for Constipation. rOPINIRole (REQUIP) 0.5 mg tablet Take 0.5 mg by mouth three times daily. baclofen (LIORESAL) 10 mg tablet Take 10 mg by mouth three times daily. polyethylene glycol 3350 (MIRALAX) 17 gram/dose powder Take 17 g by mouth twice daily. MULTI-VITAMIN ORAL Take by mouth. Not Taking CHOLECALCIFEROL (VITAMIN D3) 5,000 UNIT CAP not taking HISTORIES PAST MEDICAL HISTORY Diagnosis Date - Adenomatous colon polyp 11/26/2013 - Anomalous atrioventricular excitation - Kidney stones - Paralysis agitans (HCC) Parkinsons - PMH - PAST MEDICAL HISTORY OF pressure fractures in the back - Pure hypercholesterolemia - Right inguinal hernia 12/30/13 - Unspecified essential hypertension FAMILY HISTORY Problem Relation Age of Onset - Hypertension Mother - Hypertension Sister x2 - Diabetes Mother - Lipids Sister - Breast Cancer Mother diabetes - Headache Sister - Thryroid disease [Other] [OTHER] Sister - Thyroid Mother - Diabetes Sister SOCIAL HISTORY Social History Substance Use Topics - Smoking status: Never Smoker - Smokeless tobacco: Never Used - Alcohol use No PHYSICAL EXAMINATION Wt 68.9 kg (152 lb) BMI 27.80 kg/m? General appearance: Well appearing, alert, in no acute distress, well-hydrated, well nourished Skin: Skin color, texture, turgor normal, no suspicious rashes or lesions Respiratory:+ effort Cardiovascular: Not examined GI: Normal abdominal exam, Abdomen soft, non-tender. No masses, organomegaly Musculoskeletal: normal ROM Neuro: No gross neurologic defecits Genitourinary: not examined ASSESSMENT: (N40.1, N13.8) BPH with obstruction/lower urinary tract symptoms (primary encounter diagnosis) (N41.1) Chronic prostatitis PLAN: Urine cx - treat appropriately, would start with 3 weeks. May need ID referral Renal us Set for 3 week fu Will need repeat psa at some point Dawson Myrick Jr, MD Referring Provider: SHENA LORENZANA [[id number]] Allergies As of Date: 02/05/2018 Noted Allergy Reaction PENICILLINS 04/03/2007 4 - Hives SEROQUEL (QUETIAPINE FUMARATE) 06/28/2009 1 - Mental Status Change Comments: psychotic episode Date Reviewed: 02/05/2018 Reviewed by: Dawson Myrick Jr. - Fully Assessed Reason for Visit: New Patient [172] Cmt: Enlarged Prostate,BPH Primary Visit Diagnosis:BPH with obstruction/lower urinary tract symptoms [N40.1, N13.8] Other Visit Diagnosis:Chronic prostatitis [N41.1] Order(s):UA DIP, URINE (POC) [[id number]] Order #: [id number]. #:[id number] KIDNEY/BLADDER [[id number]] Order #: [id number] FUTURE URINE CULTURE [SQURCUL] Order #: [id number] Prescriptions as of 02/05/2018 Sig: PANTOPRAZOLE 20 MG TABLET,DEL* TAKE 1 TABLET DAILY ON EMPTY * TAMSULOSIN 0.4 MG CAPSULE TAKE 1 CAPSULE BY MOUTH DAILY* CARBIDOPA ER 50 MG-LEVODOPA 2* Take one(1) tablet six times * DIAZEPAM 5 MG TABLET One half tablet 3 times a day* POLYETHYLENE GLYCOL 3350 17 G* Take 17 g by mouth once daily* MAGNESIUM HYDROXIDE 400 MG/5 * Take 15 mL by mouth once samuel* ROPINIROLE 0.5 MG TABLET Take 0.5 mg by mouth three ti* BACLOFEN 10 MG TABLET Take 10 mg by mouth three marquis* POLYETHYLENE GLYCOL 3350 17 G* Take 17 g by mouth twice samuel* MULTI-VITAMIN ORAL Take by mouth. Not Taking * CHOLECALCIFEROL (VITAMIN D3) * not taking Problem List As Of Date 02/05/2018 Noted Resolved LUMBAGO [M54.5] INVALID FOR* More... Unspecified essential hypertension [I10] INVALID FOR*04/13/2016 More... IMPAIRED FASTING GLUCOSE [R73.01] INVALID FOR* More... Paralysis agitans [G20] INVALID FOR* More... Routine general medical examination at a health*INVALID FOR*04/13/2016 More... Obesity [E66.9] INVALID FOR*04/13/2016 More... Elevated PSA [R97.20] INVALID FOR* More... Joint Pain [M25.50] INVALID FOR* More... Adenomatous colon polyp [D12.6] INVALID FOR* Constipation [K59.00] INVALID FOR* Visit Notes: >> Sulema Meadows February 05, 2018 10:36 AM Status: Signed Patient presents with: New Patient: Enlarged Prostate,BPH Disposition: Return in about 3 weeks (around 02/26/2018). Follow-up and Disposition History Recorded Encounter Status:Closed by DAWSON MYRICK MD on 02/05/18 URINALYSIS, ROUTINE Collected: 01/03/2018 Status: F Source: [place]IK[place] (DIPSTICK) 8:00 PM [facility] REPOSITORY Order Comment: How was Urine Obtained? CLEAN CATCH TYPE CODE TESTS RESULT OUT OF RANGE REFERENCE UNITS LAB L400.3000 Yellow COLOR Normal Yellow LAB L400.3050 Clear Normal CLARITY Cloudy LAB L400.3200 Normal mg/dl High 50 GLUCOSE, UR LAB L400.3300 Negative mg/dL Normal BILIRUBIN URINE Negative LAB L400.3400 Negative mg/dl High 5 KETONE UR LAB L400.3465 1.002-1.030 Normal SP.GR. DIPSTX 1.010 LAB L400.3550 5.0 - 8.0 pH UR Normal 8.0 LAB L400.3600 Negative mg/dl High PROT DIPSTX 100 LAB L400.3700 Normal mg/dl Normal UROBILI Normal LAB L400.3750 Negative High NITRITE UR Positive LAB L400.3780 Negative /ul High OCCULT BLOOD-UR 250 LAB L400.3800 Negative /ul High LEUK ESTERASE 500 Performed By: #### L400.2010 #### [facility] [address] [place], [address] Observed: 01/03/2018 Status: F Source: NIKIA CULTURE, URINE 8:00 PM [facility] REPOSITORY Urine Culture #1 NON VIABLE SPECIMEN FOR SENSITIVITY PANEL ORGANISM 1: Morganella morganii sp sibonii [place] Count >100,000 ORGANISM 2: Proteus mirabilis [place] Count >100,000 Morganella morganii sp sibonii: REACTION Amoxacillin/Clavulanic Acid $ >=32 R Ampicillin $ >=32 R Ampicillin/Sulbactam $ >=32 R Cefazolin $ >=64 R Cefepime $ 32 R Ceftriaxone $ <=1 S Ciprofloxacin $ >=4 R Ertapenim $$$ <=0.5 S Gentamicin $ 2 S Levofloxacin $ >=8 R Nitrofurantoin $ >=512 R Tobramycin $ 4 S Trimethoprim/Sulfametho $ 160 R (NF) indicates non-formulary drug at [facility]. Approval by Infectious Disease Specialist required before non-formulary drugs may be ordered and/or dispensed. Proteus mirabilis: REACTION Amoxacillin/Clavulanic Acid $ 8 S Ampicillin $ >=32 R Ampicillin/Sulbactam $ 16 I Cefazolin $ 8 S Cefepime $ <=1 S Ceftriaxone $ <=1 S Ciprofloxacin $ >=4 R Ertapenim $$$ <=0.5 S Gentamicin $ <=1 S Levofloxacin $ >=8 R Nitrofurantoin $ 128 R Piperacillin/Tazobactam $$ <=4 S Tobramycin $ <=1 S Trimethoprim/Sulfametho $ >=320 R (NF) indicates non-formulary drug at [facility]. Approval by Infectious Disease Specialist required before non-formulary drugs may be ordered and/or dispensed. Performed By: #### M100.0650 #### [facility] [address] [place] [address]. [place], [place], [id number] Observed: 11/10/2017 Status: F Source: [place] CULTURE, URINE 12:15 AM [facility] REPOSITORY Urine Culture ORGANISM 1: Proteus mirabilis [place] Count >100,000 Proteus mirabilis: REACTION Amoxacillin/Clavulanic Acid $ 8 S Ampicillin $ >=32 R Ampicillin/Sulbactam $ 16 I Cefazolin $ 8 S Cefepime $ <=1 S Ceftriaxone $ <=1 S Ciprofloxacin $ >=4 R Ertapenim $$$ <=0.5 S Gentamicin $ <=1 S Levofloxacin $ >=8 R Nitrofurantoin $ 128 R Piperacillin/Tazobactam $$ <=4 S Tobramycin $ <=1 S Trimethoprim/Sulfametho $ >=320 R (NF) indicates non-formulary drug at [facility]. Approval by Infectious Disease Specialist required before non-formulary drugs may be ordered and/or dispensed. Performed By: #### M100.0650 #### [facility] [address] [place], [address] URINALYSIS, ROUTINE Collected: 10/17/2017 Status: F Source: NIKIA (DIPSTICK) 2:00 PM [facility] REPOSITORY Order Comment: How was Urine Obtained? CLEAN CATCH TYPE CODE TESTS RESULT OUT OF RANGE REFERENCE UNITS LAB L400.3000 Yellow COLOR Normal Yellow LAB L400.3050 Clear Normal CLARITY Sl. Cloudy LAB L400.3200 Normal mg/dl Normal GLUCOSE, UR Normal LAB L400.3300 Negative mg/dL Normal BILIRUBIN URINE Negative LAB L400.3400 Negative mg/dl Normal KETONE UR Negative LAB L400.3465 1.002-1.030 Normal SP.GR. DIPSTX 1.015 LAB L400.3550 5.0 - 8.0 pH UR Normal 9.0 LAB L400.3600 Negative mg/dl High PROT DIPSTX 100 LAB L400.3700 Normal mg/dl Normal UROBILI Normal LAB L400.3750 Negative High NITRITE UR Positive LAB L400.3780 Negative /ul High 50 OCCULT BLOOD-UR LAB L400.3800 Negative /ul High LEUK ESTERASE 500 Performed By: #### L400.2011 #### [facility] [address] [place], [address] Observed: 10/17/2017 Status: F Source: NIKIA CULTURE, URINE 2:00 PM [facility] REPOSITORY Urine Culture ORGANISM 1: Proteus mirabilis [place] Count >100,000 Proteus mirabilis: REACTION Amoxacillin/Clavulanic Acid $ 8 S Ampicillin $ >=32 R Ampicillin/Sulbactam $ 16 I Cefazolin $ 8 S Cefepime $ <=1 S Ceftriaxone $ <=1 S Ciprofloxacin $ >=4 R Ertapenim $$$ <=0.5 S Gentamicin $ <=1 S Levofloxacin $ >=8 R Nitrofurantoin $ 128 R Piperacillin/Tazobactam $$ <=4 S Tobramycin $ <=1 S Trimethoprim/Sulfametho $ >=320 R (NF) indicates non-formulary drug at [facility]. Approval by Infectious Disease Specialist required before non-formulary drugs may be ordered and/or dispensed. Performed By: #### M100.0650 #### [facility] [address] [place], [address] ALLERGIES ALLERGIES DATE TYPE / CODE NAME / CODE REACTION SEVERITY SOURCE 09/07/2018 Drug quetiapine Other Unknown [place] Allergy/416 fumarate/[id number] Community 892266([facility] 0(RXNO) [facility] ED CT) Repository 09/07/2018 Drug Penicillins/O50436 Hives Unknown [place] Allergy/416 0476(RXNORM) Community 557451([facility] ED [facility]) Repository 06/28/2009 DRUG QUETIAPINE Mental Chg [facility] INGREDI/419 FUMARATE [place] 685726(SN Repository ED CT) 04/03/2007 Drug PENICILLINS HIVES [facility] Class/08446 [place] 1003(SNOMED Repository CT) ENCOUNTERS ENCOUNTERS ADMIT/DISCHARGE ACCOUNT ADMITTING ENCOUNTER LOCATION SOURCE NUMBER CLASS 10/01/2018 [id number] Ambulatory [facility] ing:[facility] Repository 09/24/2018 [id number] Ambulatory [facility] Hospital ing:[facility] Repository 09/18/2018 [id number] Ambulatory [facility] Hospital ing:[facility] Repository 09/07/2018/09/08/20 [id number] Emergency [address] ing:ED Repository 08/24/2018 [id number] Ambulatory [facility] Hospital ing:[facility] Repository 08/20/2018/08/21/20 [id number] Ambulatory [address] Repository 07/08/2018 [id number] Ambulatory [facility] Hospital ing:[facility] Repository 04/10/2018 [id number] Ambulatory [facility] Hospital ing:[facility] Repository 04/09/2018/04/09/20 [id number] Ambulatory [address] Repository 04/01/2018 [id number] Ambulatory [facility] Hospital ing:[facility] Repository 03/26/[id number] [facility] ing:[facility] Repository 02/26/2018/02/28/20 [id number] Ambulatory [address] Repository 02/06/2018/02/07/20 [id number] Ambulatory [address] Repository 02/05/2018/02/06/20 [id number] Ambulatory [address] Repository 01/03/[id number] [facility] ing:[facility] Repository 11/10/[id number] [facility] ing:[facility] Repository 10/17/[id number] [facility] ing:[facility] Repository PAYERS PAYERS ENCOUNTER GUARANTOR PAYER SUBSCRIBER SOURCE 10/01/2018 SHENA C Primary Insurance:SELF NOT GIVENUNK [place] [address] [address] Number: Effective [facility] Date:2018-10-01 Repository [place], [place] [address]Anq: (HP) 09/24/2018 SHENA C Primary Insurance:SELF NOT GIVENUNK [place] [address] [address] Number: Effective [facility] Date:2018-09-24 Repository [place], [place] [address]Rxi: (HP) 09/18/2018 SHENA C Primary SHENA [place] [facility] PRUSKIDOB: [place] [id number] S *IN [facility] [id number] Number: Repository [place], [place] [id number] [phone]: [phone]) Date:2503-06-93CDLQ [phone] (HP) CLAIMS [address] [address]YG: 09/18/2018 Secondary NOT GIVENUNK [place] Insurance:SELF PAY [facility] Number: Effective Repository Date:2018-09-18 09/07/2018 SHENA C Primary SHENA C [place] Insurance:[facility] [facility] PRUSKIDOB: [place] [id number] S *IN [facility] [id number] [facility] Number: Repository [place] [id number]: [phone]) Date:3442-75-46SEUL [phone] (HP) CLAIMS [address] [place] [phone]: 09/07/2018 Secondary NOT GIVENUNK [place] Insurance:SELF PAY [facility] Number: Effective Repository Date:2018-09-07 08/24/2018 SHENA C Primary SHENA Alvarado [place] Insurance:[facility] PRUSKIDOB: [place] [id number] S *IN [facility] [id number] [facility] Number: [place] [id number]: [phone]) Date:2674-82-27BFNQ [phone] (HP) CLAIMS [address] [place] [phone]: 08/24/2018 Secondary NOT GIVENUNK [place] Insurance:SELF PAY [facility] Number: Effective Repository Date:2018-08-24 07/08/2018 Shena C Primary Shena Berryoster [place] Insurance:CARESOURCEPo PruskiDOB: [place] [address] [address] licy Number: [id number]. [facility] [id number] Repository [place] Date:2018-07-08[address]Low: [phone]: CLAIMS [phone] (HP) [place] [address]GX: 07/08/2018 Secondary NOT GIVENUNK [place] Insurance:SELF PAY [facility] Number: Effective Repository Date:2018-07-08 04/10/2018 Shena C Primary Shena C Nikia [place] Insurance:HUMANA PruskiDOB: [place] [address] [address] [facility] [id number]. Francis Hospital & [facility] Number: Repository [place] [id number]: ([phone]) Date:1967-59-63[phone] () [address] [place] [phone]: 04/10/2018 Secondary Shena C [place] Insurance:CARESOURCEPo PruskiDOB: Community licy Number: [id number] [id number] Repository Date:2018-04-10[address]ATTN: [place] [address]NZ: 04/10/2018 Tertiary NOT GIVENUNK [place] Insurance:SELF PAY [facility] Number: Effective Repository Date:2018-04-10 04/01/2018 Shena C Primary Shena Alvarado [place] Insurance:HUMANA MCR PruskiDOB: [place] [id number] S HMO IN [facility] [id number]. Francis Hospital & Heart Center 07/11/18Policy Number: Repository [place] [id number]: (330) Date:0447-61-55QF [phone] () [address] [place] [phone]: 04/01/2018 Secondary Shena C [place] Insurance:CARESOURCEPo PruskiDOB: [facility] licy Number: [id number] Hospital [id number] Repository Date:2018-04-01[address]ATTN: [place] [address]OA: 04/01/2018 Tertiary NOT GIVENUNK [place] Insurance:SELF PAY [facility] Number: Effective Repository Date:2018-04-01 03/26/2018 Shena C Primary Shena Alvarado [place] Insurance:HUMANA PruskiDOB: [facility] MEDICARE [facility] [id number]. Francis Hospital & [facility] Number: Repository [place] [id number]: [phone]) Date:3429-36-29[phone] (HP) [address] [place] [phone]: 03/26/2018 Secondary NOT GIVENUNK [place] Insurance:SELF PAY [facility] Number: Effective Repository Date:2018-03-26 01/03/2018 Shena Alvarado Primary Shena Montejo [place] Insurance:HUMANA PruskiDOB: [place] [id number] S MEDICARE [facility] [id number]. Francis Hospital & [facility] Number: Repository [place] [id number]: [phone]) Date:4427-10-81[phone] (HP) [address] [place] [phone]: 01/03/2018 Secondary NOT GIVENUNK [place] Insurance:SELF PAY [facility] Number: Effective Repository Date:2018-01-03 11/10/2017 Shena Alvarado Primary Shena Alvarado [place] Insurance:HUMANA PruskiDOB: [place] [id number] S MEDICARE [facility] [id number]. Francis Hospital & [facility] Center Number: Repository [place] [id number]: ([phone]) Date:3793-92-56WH [phone] (HP) [address] [place] [address]WP: 11/10/2017 Secondary NOT GIVENUNK [place] Insurance:SELF PAY [facility] Number: Effective Repository Date:2017-11-10 10/17/2017 Shena C Primary Shena Alvarado [place] Insurance:HUMANA PruskiDOB: [place] [id number] S MEDICARE [facility] [id number]. Francis Hospital & [facility] Number: Repository [place] [id number]: ([phone]) Date:4898-93-58I[phone] (HP) [address] [place] [phone]: 10/17/2017 Secondary NOT GIVENUNK [place] Insurance:SELF PAY [facility] Number: Effective Repository Date:2017-10-17
== END ==
LOC: OLS.WCC 04:15
PROVIDERS: Visit Provider Family Medicine
DX: R31.9 Hematuria, unspecified (principal)
CPT/HCPCS: 81002; 87077; 87086; 87088; 87186

== ENCOUNTER 2018-09-07 15:55 | Emergency (ER) | payer MEDICARE, SELFPAY ==
[2018-09-07 15:56] VITALS: BP 142/78; PULSE 102; RESP 15; TEMP 37; O2SAT 95; BMI 25.0
--- NOTE | 2018-09-07 16:15 | CT_ITS ---
STUDY: CT BRAIN WITHOUT CONTRAST REASON FOR EXAM: Male, 62 years old. Altered mental status. Auditory hallucinations. RADIATION DOSAGE (If Supplied By Facility): CTDIvol = ( 44.99 ) mGy, DLP = ( 863.60 ) mGycm TECHNIQUE: Transaxial CT imaging of the brain was performed without administration of intravenous contrast material. Individualized dose optimization techniques were used for this CT. COMPARISON: None. FINDINGS: Normal soft tissue structures. Normal calvarium. Normal size ventricles and extra-axial spaces for the patient's age. Normal white matter tracts of the cerebral hemispheres. Normal basal ganglia and thalami. Normal brainstem. Normal cerebellum. There is no intracranial hemorrhage. There are no findings of an acute ischemic infarction. There is mucosal thickening in the left maxillary sinus. CT/Brain/Head without Contrast IMPRESSION: Mild chronic sinusitis. No intracranial findings. Electronically Signed: Latrice Cespedes MD at 18:29 EST Tel , Service support ,
--- NOTE | 2018-09-07 16:15 | RAD_ITS ---
STUDY: X-RAY CHEST REASON FOR EXAM: Male, 62 years old. Altered mental status TECHNIQUE: Frontal view of the chest COMPARISON: 08/29/2017 FINDINGS: The lungs are clear. There are no pleural effusions. There is no pneumothorax. The heart is normal in size. The visualized osseous structures are within normal limits. RAD/Chest 1 View (Portable) IMPRESSION: No acute thoracic pathology. Electronically Signed: Albaro Zamorano, at 17:51 EST Tel , Service support ,
--- NOTE | 2018-09-07 16:16 | EKG12_ITS ---
Test Reason : MENTAL HEALTH Blood Pressure : / mmHG Vent. Rate : 081 BPM Atrial Rate : 081 BPM P-R Int : 196 ms QRS Dur : 088 ms QT Int : 370 ms P-R-T Axes : 044 009 051 degrees QTc Int : 429 ms Normal sinus rhythm Normal ECG Confirmed by STERLING HATFIELD, URSULA ([id number]), editor managing newspaper DINA LORENZANA ([id number]) on 09/09/2018 12:48:46 PM Referred By: DC Confirmed By:URSULA KATZ MD
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
[2018-09-07 16:50] LABS: Absolute Lymphocyte Count 0.63 X10^3/ul (0.83-4.51); Absolute Neutrophil Count 6.6 X10^3/uL (2.0-7.7); Basophil# 0.01 X10^3/uL; Basophil% 0.1 % (0-1); Eosinophil# 0.04 X10^3/uL; Eosinophils% 0.5 % (0-5); Hematocrit 43.6 % (40-54); Hemoglobin 14.4 g/dl (13.0-16.5); Lymphocyte # 0.63 X10^3/ul (4.0); Lymphocyte % 7.9 % (19-41); Mean Corpuscular Hgb 30.3 pg (27.0-32.0); Mean Corpuscular Volume 91.8 fL (80-94); Mean Platelet Vol. 11.1 fl (6.2-12.0); Monocyte# 0.68 X10^3/uL; Monocyte% 8.5 % (0-10); Neutrophil # 6.59 X10^3/uL (2.7-7.7); Neutrophil % 82.9 % (47-70); Platelet Count 159 K/mm3 (150-450); RBC Distribution Width CV 12.3 % (11.6-14.6); RBC Distribution Width SD 41.5 fl (35.1-43.9); Red Blood Count 4.75 M/mm3 (4.6-6.2)
[2018-09-07 16:51] LABS: POSITIVE COUNT NO; POSITIVE DIFFERENTIAL NO; POSITIVE MORPHOLOGY NO
[2018-09-07 17:12] LABS: ALB/GLOB Ratio 1.1 RATIO (0.9-2.4); AST(SGOT) 9 U/L (15-37); Alanine Aminotransfer ALT/SGPT 11 U/L (16-61); Albumin, Serum 3.6 g/dL (3.2-5.0); Alkaline Phosphatase 58 U/L (45-117); Anion Gap 6 (5-15); BUN 21 mg/dL (7-18); BUN/Creat Ratio 25.2 RATIO (10-20); Calcium,Total 8.4 mg/dL (8.5-10.1); Chloride 111 mmol/L (98-107); Creatinine, Serum 0.83 mg/dL (0.70-1.30); EST Glomerular Filtration Rate 99 mL/min (>60); Est Glom Filt Rate - Afr Amer 120 mL/min (>60); Estimated Creatinine Clearance 82.21 ml/min; Globulin 3.3 g/dL (2.2-4.2); Glucose 129 mg/dL (74-106); Potassium 3.8 mmol/L (3.5-5.1); Protein, Total 6.9 g/dL (6.4-8.2); Sodium Level 142 mmol/L (136-145); Thyroid Stim Hormone (TSH) 1.11 uIU/mL (0.358-3.74)
[2018-09-07 17:35] LABS: Alcohol, Blood (Medical)-Serum < 3.0 mg/dL
[2018-09-07] MEDS: Baclofen 10 MG Tablet 20 MG PO ×2 (17:49→22:38)
[2018-09-07] MEDS: CARBIDOPA/LEVODOPA CR 50/200 Tablet PO ×2 (17:49→22:38)
[2018-09-07 18:11] LABS: Bacteria 0 SEEN /hpf (None Seen); Mucous, Urine 0 SEEN /hpf (<or=2+)
[2018-09-07 18:17] LABS: Color, Urine Yellow (Yellow); Glucose, Dipstick Normal (Normal); Ketone-Dipstick 5 mg/dl (Negative); Leukocyte Esterase-Dipstick 25 /ul (Negative); Nitrite-Dipstick Negative (Negative); Occult Blood-Urine Negative /ul (Negative); Protein-Dipstick Negative (Negative); Urine Bilirubin Dipstick Negative (Negative); Urine Clarity Clear (Clear); Urine Urobilinogen Normal (Normal)
[2018-09-07 18:33] LABS: Red Blood Cells-Urine 0-5 SEEN /hpf (0-5); Squamous Epithelial Cells - UA 0-5 SEEN /hpf (0-5); White Blood Cells 0-5 SEEN /hpf (0-5)
[2018-09-07 18:34] LABS: Amphetamine Urine VISTA NEGATIVE (<1000 ng/mL); Barbiturate Urine VISTA NEGATIVE (< 200 ng/mL); Benzodiazepine Urine VISTA POSITIVE (< 200 ng/mL); Cocaine Urine VISTA NEGATIVE (< 300 ng/mL); Ecstacy Urine VISTA NEGATIVE (< 500 ng/mL); Methadone Urine VISTA NEGATIVE (< 300 ng/mL); PCP Urine VISTA NEGATIVE (< 25 ng/mL); THC Urine VISTA NEGATIVE (< 50 ng/mL); Vista UDS pH Range 7
--- NOTE | 2018-09-07 18:51 | ED.RN ---
CALLED [facility] AND [facility] STATED SHE WILL LET MEGHNA KNOW PT NEEDS TO BE SEEN.
--- NOTE | 2018-09-07 18:52 | ED.RN ---
[facility] FROM [facility] IS ON THE WAY TO SEE THIS PT.
[2018-09-07 19:44] VITALS: BP 119/72; PULSE 62; RESP 16; O2SAT 94
--- NOTE | 2018-09-07 20:04 | ED.RN ---
[facility] FROM [facility] IS HERE TO SEE PT.
[2018-09-07 21:30] VITALS: BP 104/67; PULSE 72; RESP 16; O2SAT 93
[2018-09-07] MEDS: diazePAM 2 MG Tablet PO (22:38)
[2018-09-07] MEDS: Pramipexole Di-HCl 1 MG Tablet PO (22:38)
[2018-09-07] MEDS: Tamsulosin HCl 0.4 MG Capsule PO (22:38)
[2018-09-07] MEDS: Cephalexin 250 MG Capsule 500 MG PO (22:43)
[2018-09-08] VITALS (7 sets, daily range): BP systolic 112–144; BP diastolic 65–91; PULSE 60–102; RESP 14–22; O2SAT 90–95
[2018-09-08] MEDS: Baclofen 10 MG Tablet 20 MG PO (04:24)
[2018-09-08] MEDS: diazePAM 2 MG Tablet PO (04:24)
[2018-09-08] MEDS: CARBIDOPA/LEVODOPA CR 50/200 Tablet PO (04:24)
[2018-09-08] MEDS: Pantoprazole Sodium 20 MG Tablet PO (04:28)
== END 2018-09-08 08:15 ==
PROVIDERS: Emergency Provider Emergency Medicine; Family Provider Family Medicine; PCP Family Medicine
DX: F22 Delusional disorders (principal); G20 Parkinson's disease; J32.9 Chronic sinusitis, unspecified; F03.90 Unspecified dementia, unspecified severity, without behavioral disturbance, psychotic disturbance, mood disturbance, and anxiety; K21.9 Gastro-esophageal reflux disease without esophagitis; I10 Essential (primary) hypertension; G25.81 Restless legs syndrome; F32.9 Major depressive disorder, single episode, unspecified; Z87.440 Personal history of urinary (tract) infections; Z79.899 Other long term (current) drug therapy
CPT/HCPCS: 70450; 71045; 80053; 80307; 80320; 81001; 84443; 84484; 85025; 87086; 93005; 99285; J7040; P9612; G0480

== ENCOUNTER → 2018-09-18 05:00 | Outpatient (REF) | payer OTHER, MEDICARE, SELFPAY ==
[2018-09-07 15:56] VITALS: BMI 25.0
[2018-09-18 09:05] LABS: AST(SGOT) 11 U/L (15-37); Alanine Aminotransfer ALT/SGPT 9 U/L (16-61); Albumin, Serum 3.4 g/dL (3.2-5.0); Alkaline Phosphatase 68 U/L (45-117); Anion Gap 10 (5-15); BUN 27 mg/dL (7-18); BUN/Creat Ratio 28.8 RATIO (10-20); Calcium,Total 8.9 mg/dL (8.5-10.1); Chloride 119 mmol/L (98-107); Creatinine, Serum 0.94 mg/dL (0.70-1.30); EST Glomerular Filtration Rate 86 mL/min (>60); Est Glom Filt Rate - Afr Amer 104 mL/min (>60); Globulin 3.5 g/dL (2.2-4.2); Glucose 117 mg/dL (74-106); Potassium 3.5 mmol/L (3.5-5.1); Protein, Total 6.9 g/dL (6.4-8.2); Sodium Level 156 mmol/L (136-145)
[2018-09-18 09:10] LABS: Hematocrit 51.8 % (40-54); Hemoglobin 16.1 g/dl (13.0-16.5); Mean Corp Hgb Conc 31.1 g/gl (32-36); Mean Corpuscular Hgb 30.3 pg (27.0-32.0); Mean Corpuscular Volume 97.6 fL (80-94); Mean Platelet Vol. 13.9 fl (6.2-12.0); Platelet Count 121 K/mm3 (150-450); RBC Distribution Width CV 13.2 % (11.6-14.6); RBC Distribution Width SD 46.8 fl (35.1-43.9); Red Blood Count 5.31 M/mm3 (4.6-6.2)
[2018-09-18 09:16] LABS: Scan Indicated on CBC? Y/N NO
== END ==
LOC: OLS.WCC 05:00
PROVIDERS: Visit Provider Family Medicine
DX: I10 Essential (primary) hypertension (principal); R50.9 Fever, unspecified; Z79.899 Other long term (current) drug therapy
CPT/HCPCS: 36415; 80053; 85027; 87077; 87086; 87088; 87186

== ENCOUNTER → 2018-09-24 05:00 | Outpatient (REF) | payer MEDICARE, MEDICAID, SELFPAY ==
[2018-09-07 15:56] VITALS: BMI 25.0
[2018-09-24 08:32] LABS: Anion Gap 8 (5-15); BUN 31 mg/dL (7-18); BUN/Creat Ratio 37.9 RATIO (10-20); Calcium,Total 8.1 mg/dL (8.5-10.1); Chloride 135 mmol/L (98-107); Creatinine, Serum 0.82 mg/dL (0.70-1.30); EST Glomerular Filtration Rate 101 mL/min (>60); Est Glom Filt Rate - Afr Amer 122 mL/min (>60); Glucose 118 mg/dL (74-106); Potassium 4.1 mmol/L (3.5-5.1); Sodium Level 167 mmol/L (136-145)
[2018-09-24 09:02] LABS: Hemoglobin 14.1 g/dl (13.0-16.5); Mean Corp Hgb Conc 29.4 g/gl (32-36); Mean Corpuscular Hgb 30.4 pg (27.0-32.0); Mean Corpuscular Volume 103.4 fL (80-94); Platelet Count 84 K/mm3 (150-450); RBC Distribution Width CV 13.8 % (11.6-14.6); Red Blood Count 4.64 M/mm3 (4.6-6.2); Scan Indicated on CBC? Y/N YES- FLAGS NOTED; White Blood Count 11.4 K/mm3 (4.4-11.0)
== END ==
LOC: OLS.WCC 05:00
PROVIDERS: Visit Provider Family Medicine
DX: I10 Essential (primary) hypertension (principal); Z79.899 Other long term (current) drug therapy
CPT/HCPCS: 36415; 80048; 85027

== ENCOUNTER → 2018-10-01 19:00 | Outpatient (REF) | payer SELFPAY ==
[2018-09-07 15:56] VITALS: BMI 25.0
[2018-10-02 09:05] LABS: Color, Urine Yellow (Yellow); Glucose, Dipstick 100 mg/dl (Normal); Ketone-Dipstick 15 mg/dl (Negative); Leukocyte Esterase-Dipstick 500 /ul (Negative); Nitrite-Dipstick Positive (Negative); Occult Blood-Urine 250 /ul (Negative); Protein-Dipstick 100 mg/dl (Negative); Urine Clarity Cloudy (Clear); Urine Urobilinogen 1 mg/dl (Normal)
[2018-10-02 09:10] LABS: Urine Bilirubin Dipstick 1 mg/dL (Negative)
--- OUTSIDE RECORDS SUMMARY | 2018-12-04 03:19 | XMS RPT_ITS ---
:1955 Author Organization OHIP Support Name Relationship Address Phone D Unavailable Unavailable Unavailable PruskiDequany Unavailable [address] + [address] [place] [address] PIERRE SHENA Un[address] + [place] [address] D Unavailable Unavailable Unavailable Pruski, Taj Unavailable [address] + [address] [place] [address] PIERRE SHENA Unavailable [address] + [place] [address] D Unavailable Unavailable Unavailable Pruski Taj Unavailable [address] + [address] [place] [address] PIERRE SHENA Un[address] + [place] [address] D Unavailable Unavailable Unavailable PRUSKI TAJ Unavailable [address] + [address] [place] [address] SHENA TODD Unavailable [address] + [place] [address] D Unavailable Unavailable Unavailable PRUSKI TAJ Unavailable [address] + [address] [place] [address] SHENA TODD Unavailable [address] + [place] [address] D Unavailable Unavailable Unavailable Pruski Taj Unavailable [address] + [place] [address] Shena Todd Unavailable [address] + [place] [address] D Unavailable Unavailable Unavailable PruskiDequany Unavailable [address] + [place] [address] PruskiShena Un[address] + [place] [address] D Unavailable Unavailable Unavailable PruskiDequany Unavailable [address] + [place] [address] PruskiShena Un[address] + [place] [address] D Unavailable Unavailable Unavailable PruskiDequany Unavailable [address] + [place] [address] Pruski, Shena Unavailable [address] + [place] [address] D Unavailable Unavailable Unavailable Pruski, Taj Unavailable [address] + [place] [address] PruskiShena Un[address] + [place] [address] D Unavailable Unavailable Unavailable PruskiDequany Unavailable [address] + [place] [address] Pruski, Shena Unavailable [address] + [place] [address] D Unavailable Unavailable Unavailable PruskiDequany Unavailable [address] + [place] [address] PruskiShena Un[address] + [place] [address] Care Team Providers Name Role Phone DAWSON MYRICK JR Attending Unavailable SHENA LORENZANA Referring Unavailable DAWSON MYRICK JR Referring Unavailable DAWSON MYRICK JR Attending Unavailable DAWSON MYRICK JR Attending Unavailable ADITYA MCNULTY, DAWSON GENE Referring Unavailable DAWSON MYRICK JR Attending Unavailable DAWSON MYRICK JR Referring Unavailable Shena Lorenzana Attending Unavailable Shena Lorenzana Primary Care Unavailable Scar Irwin Attending Unavailable Lorenzana, Shena Attending Unavailable Lorenzana, Shena Attending Unavailable Lorenzana, Shena Attending Unavailable Lorenzana, Shena Attending Unavailable Lorenzana, Shena Attending Unavailable Lorenzana, Shena Attending Unavailable Lorenzana, Shena Attending Unavailable Lorenzana, Shena Attending Unavailable Lorenzana, Shena Attending Unavailable Lorenzana, Shena Attending Unavailable PROBLEMS PROBLEMS DATE TYPE CONDITION / CODE ATTENDING STATUS SOURCE 10/03/2018 Unknown I10 - Essential Lorenzana Shena Active [facility]primary[facility] hypertension / Hospital I10(ICD-10) Repository 10/03/2018 Unknown 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 Community (current) drug Hospital therapy / Repository Z79.899(ICD-10) 09/12/2018 Unknown R31.9 - Hematuria, Shena Lorenzana Active [facility] unspecified / Community R31.9(ICD-10) Hospital Repository 08/07/2018 Unknown N39.0 - Urinary Shena Lorenzana Active [facility] tract infection, Community site not specified Hospital / N39.0(ICD-10) Repository 05/27/2018 Unknown G20 - Parkinson's Shena Lorenzana Active [facility] disease / Community G20(ICD-10) Hospital Repository 02/06/2018 Active Benign prostatic NA Active [facility] hyperplasia with [place] lower urinary Repository tract symptoms / N40.1(ICD-10) 02/06/2018 Active 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 / Repository N13.8(ICD-10) 02/06/2018 Active Chronic NA Active [facility] prostatitis / [place] N41.1(ICD-10) Repository PROCEDURES PROCEDURES No Procedure Records FoundRESULTS RESULTS URINALYSIS, ROUTINE Collected: 10/01/2018 Status: F Source: [place] (DIPSTICK) 7:00 PM [facility] Order Comment: Comments: STRAIGHT CATH How [...] ESTERASE 500 Performed By: #### L400.2010 #### [facility] [address] [place], [address] Observed: 10/01/2018 Status: F Source: [place] CULTURE, URINE 7:00 PM [facility] STRAIGHT CATH Urine Culture Culture exhibits no growth. Performed By: #### M100.0650 #### [facility] [address] [place], [address] BASIC METABOLIC Collected: 09/24/2018 Status: F Source: [place] PROFILE (BMP) 5:20 AM [facility] Order Comment: 119/2 TYPE CODE TESTS [...] 5-15 Normal 8 GAP Performed By: #### L500.2500 #### [facility] [address] [facility]. [place], [place], [address] CBC-COMPLETE BLOOD CNT Collected: 09/24/2018 Status: F Source: [place] NO DIFF 5:20 AM [facility] TYPE CODE TESTS RESULT OUT OF [...] 84 Performed By: #### L100.0500, L100.4500 #### [facility] [address] [facility]. [place], [place], [address] DIFFERENTIAL COMMENT Collected: 09/24/2018 Status: F Source: [place] 5:20 AM [facility] TYPE CODE TESTS RESULT OUT OF RANGE REFERENCE UNITS LAB L100.4500 Normal SMEAR COMMENT Result Comment: THROMBOCYTOPENIA Performed By: #### L100.0500, L100.4500 #### [facility] [address] [facility] [place], [address] Observed: 09/18/2018 Status: F Source: [place] CULTURE, URINE 9:25 PM [facility] STRAIGHT CATH Urine Culture ORGANISM 1: Proteus mirabilis [place] Count >100,000 Proteus mirabilis: REACTION Ampicillin $ >=32 R Ampicillin/Sulbactam $ >=32 R Cefazolin $ <=4 S Cefepime $ <=1 S Ceftriaxone $ <=1 S Ciprofloxacin $ >=4 R Ertapenim $$$ <=0.5 S Gentamicin $ <=1 S Levofloxacin $ >=8 R Nitrofurantoin $ 256 R Piperacillin/Tazobactam $$ <=4 S Tobramycin $ <=1 S Trimethoprim/Sulfametho $ >=320 R (NF) indicates non-formulary drug at [facility]. Approval by Infectious Disease Specialist required before non-formulary drugs may be ordered and/or dispensed. Performed By: #### M100.0650 #### [facility] [address] [place], [address] COMPREHENSIVE METABOLIC Collected: 09/18/2018 Status: F Source: [facility] 5:43 AM [facility] Order Comment: 107/2 TYPE CODE TESTS [...] GAP 10 Performed By: #### L500.4050 #### [facility] [address] [facility] [place], [address] CBC-COMPLETE BLOOD CNT Collected: 09/18/2018 Status: F Source: [place] NO DIFF 5:43 AM [facility] Order Comment: 107/2 TYPE CODE TESTS [...] MPV 13.9 Performed By: #### L100.0500 #### [facility] [address] [facility] [place], [address] 12 LEAD ELECTROCARDIOGRAM Observed: 09/09/2018 Status: F Source: [place] 12:49 PM [facility] Cardiovascular Services [address] [place] [address] [place] [address] 12 Lead EKG 09/07/18 1715 MR#: [id number] Acct: [id number] Name: SHENA TODD Rep #: [id number] : 1955 62 From: Natalio Katz MD [...] Normal ECG Confirmed by STERLING HATFIELD, NATALIO ([id number]), senior editor DINA LORENZANA ([id number]) on 09/09/2018 12:48:46 PM Referred By: DC Confirmed By:NATALIO KATZ MD 09/09/18 1248 Date Naatlio Katz MD CC: Scar Irwin MD; Shena Lorenzana MD Signed EMERGENCY DEPARTMENT Observed: 09/07/2018 Status: F Source: [place] SUMMARY 11:54 PM [facility] Medical Records Department [address] [place] [address] Emergency Department Summary 09/07/18 1620 MR#: [id number] Acct: [id number] Name: SHENA TODD Rep #: [id number] : 1955 62 From: Scar Irwin MD PCP: Shena Lorenzana MD Status: REG ER - ER Visit Summary Date of Service: 09/07/18 Chief Complaint: Hallucinations and behavioral changes History of Present Illness: The patient is a 62 M [address] [facility]. He has a history of Parkinson's [...] 1. Psychosis This note was generated with [employer] dictation software. It may contain incorrect words, [...] problems, contact your Primary Care Provider. Call [facility] ([phone]) or report to the closest Emergency Room. Call 911 if necessary. 09/07/18 0978 <Electronically signed by Scar Irwin MD> Date Scar Irwin MD Cosigner Signature (If Indicated): Date CC: Shena Lorenzana MD URINE DRUG SCREEN Collected: 09/07/2018 Status: F Source: [place] (VISTA) 6:04 PM [facility] Order Comment: Order Date: 09/07/18 TYPE [...] Normal NEGATIVE Performed By: #### L505.5000 #### [facility] [address] [place], [address] URINALYSIS, COMPLETE Collected: 09/07/2018 Status: F Source: [place] 6:04 PM [facility] Order Comment: Order Date: 09/07/18 How [...] URINE SEEN Performed By: #### L400.0001 #### [facility] [address] [place], [place] [address], [address] Observed: 09/07/2018 Status: F Source: [place] CULTURE, URINE 6:04 PM [facility] Order Date: 09/07/18 Urine Culture Culture exhibits no growth. Performed By: #### M100.0650 #### [facility] [address] [place], [place] [address], [address] CBC W/DIFF, AUTOMATED Collected: 09/07/2018 Status: F Source: [place] 4:40 PM [facility] TYPE CODE TESTS RESULT OUT OF [...] Lymph 0.63 Performed By: #### L100.0100 #### [facility] [address] [place], [place], [address] COMPREHENSIVE METABOLIC Collected: 09/07/2018 Status: F Source: [facility] 4:40 PM [facility] TYPE CODE TESTS RESULT OUT OF [...] Performed By: #### L500.4050, L501.4010, L501.9520 #### [facility] [address] [place], [address] TROPONIN-I Collected: 09/07/2018 Status: F Source: [place] 4:40 PM [facility] TYPE CODE TESTS RESULT OUT OF RANGE REFERENCE UNITS LAB L501.4010 <0.045 ng/mL Normal < 0.015 TROPONIN-I Result Comment: TROPONIN-I EXPECTED VALUES <0.045 Negative 0.045 - 0.590 Consistent with Cardiac Damage > OR = 0.600 Critical Value Not every elevated troponin is indicative of AR. These values should be used with clinical judgement in examining the patient's clinical picture for diagnosis. To establish a diagnosis of AR versus myocardial injury, there must be a demonstrated rise and/or fall in the troponin values, in addition to ischemic symptoms, EKG changes, new regional wall motion abnormality, and/or angiographical evidence. PLEASE NOTE: REFERENCE RANGES EDITED 18 Performed By: #### L500.4050, L501.4010, L501.9520 #### [facility] [address] [place], [place], [address] THYROID STIM HORMONE Collected: 09/07/2018 Status: F Source: [place] (TSH) 4:40 PM [facility] TYPE CODE TESTS RESULT OUT OF RANGE REFERENCE UNITS LAB L501.9520 0.358-3.74 uIU/mL Normal TSH 1.11 Performed By: #### L500.4050, L501.4010, L501.9520 #### [facility] [address] [place], [place], [address] ALCOHOL, BLOOD Collected: 09/07/2018 Status: F Source: [place] (MEDICAL)-SERUM 4:40 PM [facility] TYPE CODE TESTS RESULT OUT OF [...] fatal coma Performed By: #### L501.9100 #### [facility] [address] [place], [place], [address] CHEST 1 VIEW Observed: 09/07/2018 Status: F Source: [place] (PORTABLE) 4:19 PM [facility] REPOSITORY [facility] Imaging Services [address] [place] [address] Chest 1 View (Portable) MR#: [id number] Acct: [id number] Name: SHENA TODD Rep #: [id number] : 1955 M 62 From: Albaro Zamorano MD PCP: Shena Lorenzana MD Status: REG ER Study: Chest 1 View (Portable) Date of Exam: 09/07/18 Exam# [id number] Ordering Dr: Scar Irwin MD STUDY: X-RAY [...] No acute thoracic pathology. Electronically Signed: Albaro Zamorano, at 17:51 EST Tel , Service support , CC: Scar Irwin MD; Shena Lorenzana MD Manager Strategy & Account: Signed BRAIN/HEAD WITHOUT Observed: 09/07/2018 Status: F Source: [place] CONTRAST 4:19 PM [facility] Imaging Services [address] [place] [address] Brain/Head without Contrast MR#: [id number] Acct: [id number] Name: SHENA TODD Rep #: [id number] : 1955 M 62 From: Latrice Cespedes MD PCP: Shena Lorenzana MD Status: REG ER Study: Brain/Head without Contrast Date of Exam: 09/07/18 Exam# [id number] Ordering Dr: Scar Irwin MD STUDY: CT [...] CC: Scar Irwin MD; Shena Lorenzana MD Manager Strategy & Account: Signed URINALYSIS, ROUTINE Collected: 08/24/2018 Status: F Source: [place] (DIPSTICK) 4:15 AM [facility] Order Comment: How was Urine Obtained? [...] ESTERASE 500 Performed By: #### L400.2011 #### [facility] [address] [place], [address] Observed: 08/24/2018 Status: F Source: [place] CULTURE, URINE 4:15 AM [facility] NURSE AIDE THOUGHT THIS WAS CLEAN CATCH Urine Culture ORGANISM 1: Proteus mirabilis [place] Count >100,000 Proteus mirabilis: REACTION Amoxacillin/Clavulanic Acid [...] >=320 R (NF) indicates non-formulary drug at [facility]. Approval by Infectious Disease Specialist required before non-formulary drugs may be ordered and/or dispensed. Performed By: #### M100.0650 #### [facility] [address] [place], [address] CNPN Observed: 08/23/2018 Status: COMPLETED Source: [place] 12:00 AM [facility] REPOSITORY Telephone (AKPRAD) SHENA TODD ([id number]) 1955 M Date Time Provider Department 08/23/18 DAWSON MYRICK JR During your visit today, we recorded the following information about you: Dawson Myrick Jr, MD 08/23/2018 1:04 PM Signed ucx + abx prescribed Please print and fax to Beatris Lackey [facility] Consultant 08/26/2018 9:34 AM Signed Called and notified Eliezer of below states he will place order for Keflex for patient. Beatris Lackey [facility] Consultant Allergies As of Date: 08/23/2018 Noted Allergy [...] More... Routine general medical examination at a [facility]*INVALID FOR*04/13/2016 More... Obesity [E66.9] INVALID FOR*04/13/2016 More... [...] 08/23/18 PROGRESS Observed: 08/20/2018 Status: COMPLETED Source: [place] 3:45 PM [facility] [place] REPOSITORY O ID: [id number] Author: Dawson Myrick Jr. Service: (none) Author [...] Willing to undergo daily. ? 04/10/18 - [facility] requesting indwelling mar catheter. cathing once daily currently. Does feel like has uti. 08/20/18 - still with recurrent uti. Was doing cic daily at [facility]. However they have stopped bc of blood [...] MD 08/20/2018 Observed: 08/20/2018 Status: F Source: [place] URINE CULTURE 3:21 PM [facility] REPOSITORY Sp. Request/Comment: - Specimen received in [...] <=0.5 F Performed By: #### URCUL #### [facility] [address] [place], [place] [address] CNOV Observed: 08/20/2018 Status: COMPLETED Source: [place] 2:15 PM [facility] REPOSITORY Office Visit (UROLMD) SHENA TODD ([id number]) 1955 M Date Time Provider Department 08/20/18 2:15 PM DAWSON MYRICK JR [place] During your visit today, we recorded the following information about you: Weight Height 68 kg 1.575 m Sulema Franks Tn 08/20/2018 3:01 PM Signed Patient presents with: [...] Willing to undergo daily. ? 04/10/18 - [facility] requesting indwelling mar catheter. cathing once daily currently. Does feel like has uti. 08/20/18 - still with recurrent uti. Was doing cic daily at [place]. However they have stopped bc of blood [...] MD 08/20/2018 Referring Provider: DAWSON MYRICK JR [[id number]] Allergies As of Date: 08/20/2018 Noted Allergy [...] Other Visit Diagnosis:Recurrent UTI [N39.0] Order(s):URINE CULTURE [JEFF] Order #: [id number] Prescriptions as of 08/20/2018 Sig: BACLOFEN 10 [...] on 08/20/18 Observed: 07/08/2018 Status: F Source: [place] CULTURE, URINE 8:45 PM [facility] Urine Culture ORGANISM 1: Proteus mirabilis [place] Count >100,000 ORGANISM 2: Proteus mirabilis [place] Count >100,000 Proteus mirabilis: REACTION Amoxacillin/Clavulanic Acid [...] >=320 R (NF) indicates non-formulary drug at [facility]. Approval by Infectious Disease Specialist required [...] >=320 R (NF) indicates non-formulary drug at [facility]. Approval by Infectious Disease Specialist required before non-formulary drugs may be ordered and/or dispensed. Performed By: #### M100.0650 #### [facility] [address] [place], [address] PROGRESS Observed: 04/10/2018 Status: COMPLETED Source: [place] 4:07 PM [facility] [place] REPOSITORY O ID: [id number] Author: Dawson Myrick Jr. Service: (none) Author [...] patient. Willing to undergo daily. 04/10/18 - [facility] requesting indwelling mar catheter. cathing once daily [...] MD 04/10/2018 Observed: 04/10/2018 Status: F Source: [place] CULTURE, URINE 4:00 AM [facility] Urine Culture Culture exhibits no growth. Performed By: #### M100.0650 #### [facility] [address] [place] [address] [place], [address] Observed: 04/09/2018 Status: F Source: [place] URINE CULTURE 4:00 PM [facility] REPOSITORY Sp. Request/Comment: - Specimen received in preservative Culture Result - No growth (<1,000 CFU/ml) Performed By: #### URCUL #### [facility] [address] [facility] [phone] [facility] [address] [place] [address] CNOV Observed: 04/09/2018 Status: COMPLETED Source: [place] 3:45 PM [facility] REPOSITORY Office Visit (UROLMD) SHENA TODD ([id number]) 1955 M Date Time Provider Department 04/09/18 3:45 PM DAWSON MYRICK JR UROLMD During your visit today, we recorded the following information about you: Dawson Myrick Jr, MD 04/10/2018 4:08 PM Signed ESTABLISHED PATIENT OFFICE VISIT HPI Shena Alvarado Taefranklinwilman is a 62 year old male who [...] patient. Willing to undergo daily. 04/10/18 - [facility] requesting indwelling mar catheter. cathing once daily [...] MD 04/10/2018 Referring Provider: DAWSON MYRICK JR [[id number]] Allergies As of Date: 04/09/2018 Noted Allergy [...] symptoms [N40.1, N13.8] Order(s):UA DIP, URINE (POC) [8136611] Order #: [id number]. #:[id number] URINE CULTURE [SQURCUL] Order #: [id number]. #:[id number] Prescriptions as of 04/09/2018 Sig: CEPHALEXIN 500 [...] Status: F Source: [place] ([place]) 12:15 AM [facility] Order Comment: COLOR OF URINE MAY [...] ESTERASE 500 Performed By: #### L400.2011 #### [facility] [address] [place], [place], [address] Observed: 04/01/2018 Status: F Source: [place] CULTURE, URINE 12:15 AM [facility] Urine Culture ORGANISM 1: Proteus mirabilis [place] Count >100,000 Proteus mirabilis: REACTION Amoxacillin/Clavulanic Acid [...] >=320 R (NF) indicates non-formulary drug at [facility]. Approval by Infectious Disease Specialist required before non-formulary drugs may be ordered and/or dispensed. Performed By: #### M100.0650 #### [facility] [address] [place], [address] CBC-COMPLETE BLOOD CNT Collected: 03/26/2018 Status: F Source: [place] NO DIFF 5:30 AM [facility] Order Comment: ROOM 107 TYPE CODE [...] MPV 11.6 Performed By: #### L100.0500 #### [facility] [address] [place], [address] COMPREHENSIVE METABOLIC Collected: 03/26/2018 Status: F Source: [place] PROFIL 5:30 AM [facility] Order Comment: ROOM 107 TYPE CODE [...] GAP 6 Performed By: #### L500.4050 #### [facility] [address] [place] [address]. [place], [place], [address] PROGRESS Observed: 02/26/2018 Status: COMPLETED Source: [place] 1:36 PM [facility] [place] REPOSITORY HNO ID: [id number] Author: Dawson Myrick Jr. Service: (none) Author [...] 02/26/2018 CNOV Observed: 02/26/2018 Status: COMPLETED Source: [place] 1:15 PM [facility] REPOSITORY Office Visit (UROLMD) SHENA TODD ([id number]) 1955 M Date Time Provider Department 02/26/18 1:15 PM DAWSON MYRICK JR UROLMD During your visit today, we recorded the following information about you: Weight Height 70.4 kg 1.575 m [facility] 02/26/2018 1:19 PM Signed Patient presents with: Established Patient: 3 week follow up/US results Dawson Myrick Jr, MD 02/26/2018 1:38 PM Signed ESTABLISHED PATIENT OFFICE VISIT HPI Shena Alvarado Barrerawilman is a 62 year old male who [...] US KIDNEY/BLADDER Observed: 02/06/2018 Status: F Source: [place] 2:21 PM [facility] REPOSITORY * * *Final Report* * * DATE OF EXAM: Feb 06 2018 2:21PM [facility] 1055 - US KIDNEY/BLADDER / PROCEDURE [...] calculus. Enlarged prostate with bladder wall thickening. Manager Strategy & Account: PSCB Transcribe Date/Time: Feb 07 2018 12:26P Dictated by : ALEKSANDR OWENS MD This examination was interpreted and the report reviewed and electronically signed by: ALEKSANDR OWENS MD on Feb 07 2018 12:31PM EST [id number] Observed: 02/06/2018 Status: COMPLETED Source: [place] 1:36 PM [facility] REPOSITORY HNO ID: [id number] Author: Liliana Mosher Rdms Service: (none) Author [...] 1:36 PM Observed: 02/05/2018 Status: F Source: [place] URINE CULTURE 1:00 PM [facility] REPOSITORY Sp. Request/Comment: - Specimen received in preservative Culture Result - >=100,000 CFU/ml Proteus mirabilis --> ABNORMAL ALERT Call the lab ([phone]) in 72 hours if susceptibility testing for [...] 0.5 F Performed By: #### URCUL #### [facility] [address] [facility] [phone] [facility] [address] [place] [id number] PROGRESS Observed: 02/05/2018 Status: COMPLETED Source: [place] 11:28 AM [facility] [place] REPOSITORY HNO ID: [id number] Author: Dawson Myrick Jr. Service: (none) Author [...] MD CNOV Observed: 02/05/2018 Status: COMPLETED Source: [place] [address]:00 AM [facility] REPOSITORY Office Visit (UROLMD) SHENA TODD ([id number]) 1955 M Date Time Provider Department 02/05/18 11:00 AM DAWSON MYRICK JR UROLMD During your visit today, we recorded the following information about you: Weight 68.9 kg Sulema Franks Ma 02/05/2018 10:36 AM Signed Patient presents with: New Patient: Enlarged Prostate,BPH Dawson Myrick Jr, MD 02/05/2018 11:31 AM Signed NEW PATIENT HISTORY AND PHYSICAL EXAM PATIENT INFO: Shena Todd 62 year old REFERRING PROVIDER: JOCELYNE AGRCIA NORMAN M PCP: Shena Lorenzana MD HPI [...] Myrick Jr, MD Referring Provider: SHENA LORENZANA [[id number]] Allergies As of Date: 02/05/2018 Noted Allergy [...] Diagnosis:Chronic prostatitis [N41.1] Order(s):UA DIP, URINE (POC) [4181366] Order #: [id number] #:[id number] KIDNEY/BLADDER [[id number]] Order #: [id number] FUTURE URINE CULTURE [SQURCUL] Order #: [id number] Prescriptions as of 02/05/2018 Sig: PANTOPRAZOLE 20 [...] Status: F Source: NIKIA (DIPSTICK) 8:00 PM [facility] Order Comment: How was Urine Obtained? [...] ESTERASE 500 Performed By: #### L400.2010 #### [facility] [address] [place], [address] Observed: 01/03/2018 Status: F Source: NIK[place] CULTURE, URINE 8:00 PM [facility] Urine Culture #1 NON VIABLE SPECIMEN FOR SENSITIVITY PANEL ORGANISM 1: Morganella morganii sp sibonii [place] Count >100,000 ORGANISM 2: Proteus mirabilis [place] Count >100,000 Morganella morganii sp sibonii: REACTION [...] 160 R (NF) indicates non-formulary drug at [facility]. Approval by Infectious Disease Specialist required [...] >=320 R (NF) indicates non-formulary drug at [facility]. Approval by Infectious Disease Specialist required before non-formulary drugs may be ordered and/or dispensed. Performed By: #### M100.0650 #### [facility] [place], [address] Observed: 11/10/2017 Status: F Source: [place] CULTURE, URINE 12:15 AM [facility] Urine Culture ORGANISM 1: Proteus mirabilis [place] Count >100,000 Proteus mirabilis: REACTION Amoxacillin/Clavulanic Acid [...] >=320 R (NF) indicates non-formulary drug at [facility]. Approval by Infectious Disease Specialist required before non-formulary drugs may be ordered and/or dispensed. Performed By: #### M100.0650 #### [facility] [address] [place], [address] URINALYSIS, ROUTINE Collected: 10/17/2017 Status: F Source: [place] (DIPSTICK) 2:00 PM [facility] Order Comment: How was Urine Obtained? [...] ESTERASE 500 Performed By: #### L400.2011 #### [facility] [address] [place], [address] Observed: 10/17/2017 Status: F Source: [place] CULTURE, URINE 2:00 PM [facility] Urine Culture ORGANISM 1: Proteus mirabilis [place] Count >100,000 Proteus mirabilis: REACTION Amoxacillin/Clavulanic Acid [...] >=320 R (NF) indicates non-formulary drug at [facility]. Approval by Infectious Disease Specialist required before non-formulary drugs may be ordered and/or dispensed. Performed By: #### M100.0650 #### [facility] [address] [place], [address] ALLERGIES ALLERGIES DATE TYPE / CODE NAME / CODE REACTION SEVERITY SOURCE 09/07/2018 Drug quetiapine Other Unknown [place] Allergy/416 fumarate/[id number] Community 525753([facility] 09/07/2018 Drug Penicillins/C63109 Hives Unknown [place] Allergy/416 0476(RXNORM) Community 257089([facility] ED CT) Repository 06/28/2009 DRUG QUETIAPINE Mental Chg [facility] INGREDI/419 FUMARATE [place] 275161(SNOM Repository ED CT) 04/03/2007 Drug PENICILLINS HIVES [facility] Class/64515 [place] 1003(SNOMED Repository CT) ENCOUNTERS ENCOUNTERS ADMIT/DISCHARGE ACCOUNT ADMITTING ENCOUNTER LOCATION SOURCE NUMBER CLASS 10/01/2018 [id number] Ambulatory [facility] ing:[facility] Repository 09/24/2018 [id number] Ambulatory [facility] ing:[facility] Repository 09/18/2018 [id number] Ambulatory [facility] ing:[facility] Repository 09/07/2018/09/08/20 [id number] Emergency [address] ing:ED Repository 08/24/2018 [id number] Ambulatory [facility] ing:[facility] Repository 08/20/2018/08/21/20 [id number] Ambulatory [address] Repository 07/08/2018 [id number] Ambulatory [facility] ing:[facility] Repository 04/10/2018 [id number] [facility] ing:[facility] Repository 04/09/2018/04/09/20 [id number] Ambulatory [address] Repository 04/01/2018 [id number] [facility] ing:[facility] Repository 03/26/2018 [id number] [facility] ing:[facility] Repository 02/26/2018/02/28/20 [id number] Ambulatory [address] Repository 02/06/2018/02/07/20 [id number] Ambulatory [address] Repository 02/05/2018/02/06/20 [id number] Ambulatory [address] Repository 01/03/2018 [id number] [facility] ing:[facility] Repository 11/10/2017 [id number] [facility] ing:[facility] Repository 10/17/2017 [id number] [facility] ing:[facility] Repository PAYERS PAYERS ENCOUNTER GUARANTOR PAYER SUBSCRIBER SOURCE 10/01/2018 SHENA Alvarado Primary Insurance:SELF NOT GIVENUNK [facility] [place] [id number] S Number: Effective [facility] Date:2018-10-01 Repository [place], [place] [address]Byj: (HP) 09/24/2018 SHENA Alvarado Primary Insurance:SELF NOT GIVENUNK [place] [facility] Number: Effective [facility] Date:2018-09-24 Repository [place], [place] [address]Rzz: (HP) 09/18/2018 SHENA Alvarado Primary SHENA [place] Insurance:[facility] PRUSKIDOB: [facility]876 S *IN NETWORKPolicy [id number] State Hospital [facility] Number: Repository [place], [place] [id number]: (607) Date:6810-01-67ADZI [phone] (HP) CLAIMS [address] [address]CW: 09/18/2018 Secondary NOT GIVENUNK [place] Insurance:SELF PAY [facility] Number: Effective Repository Date:2018-09-18 09/07/2018 SHENA C Primary SHENA [place] Insurance:MYCARE CRSC PRUSKIDOB: [facility] CARE [id number] S *IN [facility] [id number] State Hospital for the Criminally Ins[facility] Number: Repository [place], [place] [id number]: ([phone]) Date:5892-16-77HKHF [phone] (HP) CLAIMS [address] [address]RV: 09/07/2018 Secondary NOT GIVENUNK [place] Insurance:SELF PAY [facility] Number: Effective Repository Date:2018-09-07 08/24/2018 SHENA C Primary SHENA Alvarado Nikia [place] Insurance:MYCARE CRSC PRUSKIDOB: [facility] CARE [id number] S *IN [facility] [id number] State Hospital for the Criminally Ins[facility] Number: Repository [place], [place] [id number]: (153) Date:9804-62-05UTEO [phone] (HP) CLAIMS [address] [place] [address]KG: 08/24/2018 Secondary NOT GIVENUNK Nikia Insurance:SELF PAY [facility] Number: Effective Repository Date:2018-08-24 07/08/2018 Shena C Primary Shena [place] Insurance:CARESOURCEPo PruskiDOB: [facility] [id number] S licy Number: [id number].[facility] [id number] Repository [place] Date:2018-07-08[address]Mna: [phone]: CLAIMS [phone] (HP) [place] [address]QT: 07/08/2018 Secondary NOT GIVENUNK [place] Insurance:SELF PAY [facility] Number: Effective Repository Date:2018-07-08 04/10/2018 Shena C Primary Shena [place] Pr[place] Insurance:HUMANA PruskiDOB: [facility] COMMERCIALPoly [id number].[facility] Number: Repository [place] [id number]: (330) Date:7941-84-95EB [phone] () [address] [place] [address]DI: 04/10/2018 Secondary Shena C [place] Insurance:CARESOURCEPo PruskiDOB: [facility] licy Number: [id number] Hospital [id number] Repository Date:2018-04-10[address]ATTN: [place] [address]EF: 04/10/2018 Tertiary NOT GIVENUNK Nikia Insurance:SELF PAY [facility] Number: Effective Repository Date:2018-04-10 04/01/2018 Shena C Primary Shena [place] Pr[place] Co Insurance:HUMANA MCR PruskiDOB: [place] [address] [address] HMO IN [facility] [id number].[facility] 07/11/18Poly Number: Repository [place] [id number]: ([phone]) Date:0172-16-92CM [phone] () [address] [place] [phone]: 04/01/2018 Secondary Shena C Nikia Insurance:CARESOURCEPo PruskiDOB: Community licy Number: [id number] [id number] Repository Date:2018-04-01[address]ATTN: [place] [address]PW: 04/01/2018 Tertiary NOT GIVENUNK [place] Insurance:SELF PAY [facility] Number: Effective Repository Date:2018-04-01 03/26/2018 Shena C Primary Shena Berryoster Pr[place]Way[place] Co Insurance:HUMANA PruskiDOB: [place] [id number] [facility] [id number].[facility] Number: Repository thalia Givens [id number]: ([phone]) Date:6284-11-11ZR [phone] () [address] [place], [place] [address]WP: 03/26/2018 Secondary NOT GIVENUNK Nikia Insurance:SELF PAY [facility] Number: Effective Repository Date:2018-03-26 01/03/2018 Shena Alvarado Primary Shena Alvarado [place] Insurance:HUMANA PruskiDOB: [place] [address] [address] MEDICARE PPOPolicy [id number].[facility] Number: Repository RdNikia ne [id number]: (330) Date:4564-65-87CF [phone] () [address] [place] [address]WP: 01/03/2018 Secondary NOT GIVENUNK [place] Insurance:SELF PAY [facility] Number: Effective Repository Date:2018-01-03 11/10/2017 Shena Alvarado Primary Shena Alvarado Nikia [place] Insurance:HUMANA PruskiDOB: [place] [address] [address] MEDICARE PPOPolicy [id number].[facility] Number: Repository [place] [id number]: ([phone]) Date:3780-68-70KO [phone] () [address] [place] [phone]: 11/10/2017 Secondary NOT GIVENUNK [place] Insurance:SELF PAY [facility] Number: Effective Repository Date:2017-11-10 10/17/2017 Shena Alvarado Primary Shena Alvarado [place] Insurance:HUMANA PruskiDOB: [place] [address] [address] MEDICARE PPOPolicy [id number].[facility] Number: Repository RdNikia ne [id number]: 330) Date:8235-62-60DJ [phone] () [place], [place] [address]AS: 10/17/2017 Secondary NOT GIVENUNK [place] Insurance:SELF PAY [facility]ANCE[facility] Number: Effective Repository Date:2017-10-17
== END ==
LOC: OLS.WCC 19:00
PROVIDERS: Visit Provider Family Medicine
DX: N39.0 Urinary tract infection, site not specified (principal)
CPT/HCPCS: 81002; 87086